=== PATIENT | female | born 1990 | race Caucasian/White ===

== ENCOUNTER 2022-04-12 08:58 | Outpatient (CLI) | payer OTHER, SELFPAY ==
--- NOTE | 2022-04-12 09:15 | CRLHL7_ITS ---
For Patients: As a result of the Cures Act, medical imaging exams and procedure reports are released immediately into your electronic medical record. You may view this report before your referring provider. If you have questions, please contact your health care provider. INDICATION: First trimester scan, establish dates. COMPARISON: None. TECHNIQUE: Real-time preciado-scale imaging of the pelvis was performed. FINDINGS: Sonographic imaging demonstrates a single living intrauterine gestation. The embryo demonstrates a regular cardiac rate measuring 171 beats per minute. The embryo`s crown-rump length measurement of 1.6 cm corresponds to a gestational age of 8 weeks 0 days with a sonographic due date of 11/22/2022. There is a normal-appearing yolk sac. There are no gross abnormalities noted within the embryo at this early state of development. The gestational sac has a normal appearance. There is no evidence of a perigestational hemorrhage. The amount of fluid within the sac appears appropriate for gestational age. The cervix is closed. The myometrium appears normal. The ovaries are of normal size. Corpus luteal cyst left ovary. There are no suspicious fluid collections noted in the cul-de-sac. IMPRESSION: Normal first trimester OB ultrasound exam. Gestational age calculated at 8 weeks 0 days with a sonographic due date of 11/22/2022. Dictated by Isidro Santos MD @ 04/12/2022 9:59:05 AM (Electronically Signed)
== END 2022-04-12 08:59 | disposition home or self-care (01) ==
LOC: US 08:59
PROVIDERS: Visit Provider Obstetrics & Gynecology
DX: Z34.91 Encounter for supervision of normal pregnancy, unspecified, first trimester (principal); Z3A.08 8 weeks gestation of pregnancy
CPT/HCPCS: 76817

== ENCOUNTER 2022-04-12 10:22 | Outpatient (CLI) | payer OTHER, SELFPAY ==
[2022-04-12 13:14] LABS: Hepatitis B Surface Antigen* Negative (Negative)
[2022-04-12 13:31] LABS: Hepatitis C Virus Antibody* Negative (Negative)
[2022-04-12 15:13] LABS: HIV 1/2/P24 Combo Screen* Negative (Negative)
[2022-04-12 15:19] LABS: Chlamydia DNA Amplified* NOT DETECTED (No Detected); GC DNA Amplified* NOT DETECTED (No Detected)
[2022-04-13 12:25] LABS: Rapid Plasma Reagin (RPR) Non Reactive (Non Reactive)
== END 2022-04-12 10:23 | disposition home or self-care (01) ==
PROVIDERS: Visit Provider Obstetrics & Gynecology
DX: Z34.91 Encounter for supervision of normal pregnancy, unspecified, first trimester (principal)
CPT/HCPCS: 86592; 86703; 86762; 86803; 86850; 86900; 86901; 87086; 87340; 87491; 87591

== ENCOUNTER 2022-08-02 14:01 | Outpatient (CLI) | payer OTHER, SELFPAY ==
--- NOTE | 2022-08-02 14:00 | CRLHL7_ITS ---
For Patients: As a result of the Century Cures Act, medical imaging exams and procedure reports are released immediately into your electronic medical record. You may view this report before your referring provider. If you have questions, please contact your health care provider. INDICATION: Growth check COMPARISON: 04/12/2022 TECHNIQUE: Real time preciado scale imaging of the fetus was performed. FINDINGS: Sonographic imaging demonstrates a single living intrauterine gestation. Fetus demonstrates a regular cardiac rate of 129 beats per minute. Fetus has a vertex position. The placenta lies fundal posterior. Amniotic fluid volume appears normal and there is a single deepest vertical pocket: 6.5 cm. The estimated weight is 761gm which lies at the 68th %. BPD 65th percentile. HC 44th percentile. AC 67th percentile. FL 49th percentile. The HC/AC ratio measures 1.10 range (1.04-1.22). IMPRESSION: Sonographic gestational age 25 weeks 0 days and sonographic due date 11/15/2022. Sonographic age 4 days ahead of the clinical age. Estimated weight 68th percentile. Abdominal circumference 67th percentile. Dictated by Isidro Santos MD @ 08/04/2022 11:15:26 AM (Electronically Signed)
== END 2022-08-02 14:02 | disposition home or self-care (01) ==
LOC: US 14:02
PROVIDERS: Visit Provider Obstetrics & Gynecology
DX: Z34.92 Encounter for supervision of normal pregnancy, unspecified, second trimester (principal); Z3A.25 25 weeks gestation of pregnancy
CPT/HCPCS: 76816

== ENCOUNTER 2022-08-30 09:17 | Outpatient (CLI) | payer OTHER, SELFPAY ==
[2022-09-01 12:22] LABS: Rapid Plasma Reagin (RPR) Non Reactive (Non Reactive)
== END 2022-08-30 09:18 | disposition home or self-care (01) ==
PROVIDERS: Visit Provider Obstetrics & Gynecology
DX: Z34.93 Encounter for supervision of normal pregnancy, unspecified, third trimester (principal); Z3A.28 28 weeks gestation of pregnancy
CPT/HCPCS: 86592

== ENCOUNTER 2022-08-30 09:33 | Outpatient (CLI) | payer OTHER, SELFPAY ==
--- NOTE | 2022-08-30 09:45 | CRLHL7_ITS ---
For Patients: As a result of the Century Cures Act, medical imaging exams and procedure reports are released immediately into your electronic medical record. You may view this report before your referring provider. If you have questions, please contact your health care provider. INDICATION: Follow up growth COMPARISON: Ob ultrasound 08/02/2022. Technique: Ob ultrasound. Findings: Single viable intrauterine gestation of 29 weeks duration with expected date of delivery 11/15/2022. Estimated weight is 1362 g (69th percentile.); was 761 g on the study dated 08/02/2022. heart rate is 161 beats per minute and regular. The deepest pocket of amniotic fluid is measuring 5.3 cm. Placenta is fundal in location. Biparietal diameter is 4.2 cm, head circumference sees 26.3 cm, abdominal circumference is 25.4 cm and the femur length is 5.5 cm. Impression: Single viable intrauterine gestation of 29 weeks duration with estimated date of delivery 11/15/2022. 1. Estimated weight is 1362 g at 69th percentile. Dictated by Anibal Cuenca MD @ 08/30/2022 2:17:55 PM (Electronically Signed)
== END 2022-08-30 09:34 | disposition home or self-care (01) ==
LOC: US 09:35
PROVIDERS: Visit Provider Obstetrics & Gynecology
DX: Z34.93 Encounter for supervision of normal pregnancy, unspecified, third trimester (principal); Z3A.29 29 weeks gestation of pregnancy
CPT/HCPCS: 76816

== ENCOUNTER 2022-09-27 09:43 | Outpatient (CLI) | payer OTHER, SELFPAY ==
--- NOTE | 2022-09-27 09:45 | CRLHL7_ITS ---
For Patients: As a result of the Century Cures Act, medical imaging exams and procedure reports are released immediately into your electronic medical record. You may view this report before your referring provider. If you have questions, please contact your health care provider. INDICATION: Third trimester scan, evaluate growth. COMPARISON: 08/30/2022 TECHNIQUE: Real time preciado scale imaging of the fetus was performed. FINDINGS: Sonographic imaging demonstrates a single living intrauterine gestation. Fetus demonstrates a regular cardiac rate of 126 beats per minute. Fetus has a vertex position. The placenta lies fundal. Amniotic fluid volume appears normal and there is a single deepest vertical pocket: 3.7 cm. The estimated weight is 2295gm which lies at the 84th %. On the prior OB ultrasound exam dated 08/30/2022 the estimated weight was at the 69th%. BPD 64th percentile. HC 49th percentile. AC 94th percentile. FL 53rd percentile. The HC/AC ratio measures 1.00 range (0.95-1.11). IMPRESSION: Sonographic gestational age 33 weeks 4 days and sonographic due date of 11/11/2022. Sonographic age is 8 days ahead of the clinical age. Estimated weight 84th percentile. Abdominal circumference 94th percentile. Dictated by Isidro Santos MD @ 09/27/2022 2:01:10 PM (Electronically Signed)
== END 2022-09-27 09:44 | disposition home or self-care (01) ==
LOC: US 09:44
PROVIDERS: Visit Provider Obstetrics & Gynecology
DX: Z34.93 Encounter for supervision of normal pregnancy, unspecified, third trimester (principal); Z3A.33 33 weeks gestation of pregnancy
CPT/HCPCS: 76816

== ENCOUNTER 2022-10-25 09:45 | Outpatient (CLI) | payer OTHER, SELFPAY ==
--- NOTE | 2022-10-25 09:45 | CRLHL7_ITS ---
For Patients: As a result of the Century Cures Act, medical imaging exams and procedure reports are released immediately into your electronic medical record. You may view this report before your referring provider. If you have questions, please contact your health care provider. INDICATION: Follow up growth. TECHNIQUE: Transabdominal obstetrical ultrasound. COMPARISON: September 27, 2022. FINDINGS: Single living intrauterine in vertex presentation. heart rate 132 beats per minute. Normal amniotic fluid. Single deepest pocket measurement 5.7 cm. Fundal placenta. Biparietal diameter 8.8 cm, 35 weeks 3 days, 32nd percentile. Head circumference 32.7 cm, 37 weeks 0 days, 35th percentile. Abdominal circumference 33.7 cm, 37 weeks 4 days, 88th percentile. Femur length 6.9 cm, 35 weeks 4 days, 26th percentile. Composite calculated ultrasound age 36 weeks 3 days with a sonographic due date of November 19, 2022. Estimated weight 3030 g which lies at the 63rd percentile. The head to abdominal circumference ratio is normal at 1.0 (0.95-1.11). The femur length to abdominal circumference ratio is 20.9 (20.0-24.0). Estimated weight 2295 g which lies at the 83rd percentile. IMPRESSION: 1. Single living intrauterine in vertex presentation. Fundal placenta. 2. Composite calculated ultrasound age 36 weeks 3 days with an estimated due date of November 19, 2022. This is delayed by 7 days when compared to the prior study September 27, 2022. 3. Estimated weight lies at the 63rd percentile. Dictated by Prince Nails MD @ 10/25/2022 11:57:03 AM (Electronically Signed)
== END 2022-10-25 09:46 | disposition home or self-care (01) ==
PROVIDERS: Visit Provider Obstetrics & Gynecology
DX: Z34.93 Encounter for supervision of normal pregnancy, unspecified, third trimester (principal); Z3A.36 36 weeks gestation of pregnancy
CPT/HCPCS: 76816

== ENCOUNTER 2022-10-25 10:48 | Outpatient (CLI) | payer OTHER, SELFPAY | END 2022-10-25 10:49 | disposition home or self-care (01) | PROVIDERS: Visit Provider Obstetrics & Gynecology | DX: Z34.93 Encounter for supervision of normal pregnancy, unspecified, third trimester (principal); Z3A.36 36 weeks gestation of pregnancy | CPT/HCPCS: 87081; 87653 ==

== ENCOUNTER 2022-10-31 13:05 | Outpatient (CLI) | payer OTHER, SELFPAY ==
[2022-10-31 13:03] VITALS: BP 116/74; PULSE 75; RESP 18; TEMP 36.6; O2SAT 98
[2022-10-31 14:12] LABS: Appearance Urine Slightly Cloudy (Clear); Bilirubin Urine Negative (Negative); Blood Urine Negative (Negative); Color Urine Yellow (Yellow); Glucose Urine Negative (Negative); Ketones Urine Negative (Negative); Leukocyte Esterase Urine Negative (Negative); Nitrite Urine Negative (Negative); Protein Urine Negative (Negative); Urobilinogen Urine 0.2 (0.2-1.0)
[2022-10-31 14:14] LABS: Amnisure Rom* Negative
[2022-10-31 14:20] LABS: RBC Urine 0-2 (0-2)
[2022-10-31 14:21] LABS: Bacteria Urine Few; Squamous Epithelial Cell Urine Few (None-Few)
--- NOTE | 2022-10-31 14:45 | PC.OBNST ---
NST Note NST Note Start: 10/31/22 13:13 Freq: ONCE Status: Active Protocol: Document 10/31/22 14:43 AB (Rec: 10/31/22 14:45 AB [id number]) NST Note 1 EDC 11/19/22 Gestational Age In Weeks & Days 37 Weeks & 2 Days Patient Presented with Complaint(s) of Leaking fluid,Pain If Pain, describe location Patient reports lower back pain Reactive Yes Appropriate for Gestational Age Yes JULIETH Juan Date 10/31/22 Reactive Yes Appropriate for Gestational Age Yes JULIETH Gaffney, RNC Date 10/31/22 OB NST charge Yes Complete NST Note via Write Note Yes The provider's electronic signature indicates the NST is reactive/appropriate for gestational age. *Note to provider: If an addendum is required, open the patient's chart and click on the note under the Nurse/Allied Health tab.
[2022-11-01 08:46] LABS: Clue Cells No Clue Cells Seen (None Seen); Trichomonas No Trichomonas Seen (None Seen); Yeast No Yeast Seen (None Seen)
== END 2022-10-31 14:35 | disposition home or self-care (01) ==
LOC: OB OUT 13:06 → OB 13:07
PROVIDERS: Visit Provider Obstetrics & Gynecology
DX: O47.1 False labor at or after 37 completed weeks of gestation (principal); Z3A.37 37 weeks gestation of pregnancy
CPT/HCPCS: 59025; 81003; 81015; 84112; 87086; 87210; 99213

== ENCOUNTER 2022-11-05 16:07 | Outpatient (CLI) | payer OTHER, SELFPAY ==
[2022-11-05 16:16] VITALS: BP 115/73; PULSE 73
[2022-11-05 16:56] LABS: Amnisure Rom* Negative
--- NOTE | 2022-11-05 17:05 | US_ITS ---
Patient: CHANTEL DEL RIO Facility:?[facility] Patient ID:?[id number] Site Patient ID:?[id number]. Site :?[id number] Study:?US-OB Pelvis -11/05/2022 6:43:34 PM Ordering Physician:Colleen Washburn Final Report: INDICATION: Check PALMER. COMPARISON: OB ultrasound 10/25/2022. TECHNIQUE: Ultrasound OB pelvis with real time preciado scale imaging and color Doppler analysis. FINDINGS: Sonographic imaging demonstrates a single living intrauterine gestation. The fetus has a regular cardiac rate of 139 beats per minute. The fetus has a cephalic orientation. The placenta lies fundal without evidence of placenta previa. Amniotic fluid volume appears normal. Single deepest pocket measures 4.5 cm and the amniotic fluid index measures 11.1 cm. IMPRESSION: 1. Single living intrauterine gestation in cephalic position with heart rate 139 beats per minute. 2. PALMER within normal limits. Dictated by Allyn Avalos MD @ 11/05/2022 7:00:14 PM Signed by:?Allyn Avalos MD @11/05/2022 7:00:14 PM (Electronic Signature)
--- NOTE | 2022-11-05 19:17 | PC.OBNST ---
NST Note NST Note Start: 11/05/22 16:17 Freq: ONCE Status: Active Protocol: Document 11/05/22 19:16 ABP (Rec: 11/05/22 19:17 ABP [id number]) NST Note 1 Para (# of births) 0 EDC 11/19/22 Gestational Age In Weeks & Days 38 Weeks & 0 Days Patient Presented with Complaint(s) of Leaking fluid Reactive Yes JULIETH Jefferson RN Date 11/05/22 Reactive Yes JULIETH Garcia RN Date 11/05/22 OB NST charge Yes Complete NST Note via Write Note Yes The provider's electronic signature indicates the NST is reactive/appropriate for gestational age. *Note to provider: If an addendum is required, open the patient's chart and click on the note under the Nurse/Allied Health tab.
== END 2022-11-05 18:50 | disposition home or self-care (01) ==
LOC: OB OUT 16:09 → OB 16:10
PROVIDERS: Visit Provider Obstetrics & Gynecology
DX: O47.1 False labor at or after 37 completed weeks of gestation (principal); Z3A.38 38 weeks gestation of pregnancy
CPT/HCPCS: 59025; 76815; 84112; 99213

== ENCOUNTER 2022-11-18 03:31 | Inpatient (IN) | payer OTHER, SELFPAY ==
[2022-11-18] VITALS (90 sets, daily range): BP systolic 88–121; BP diastolic 49–77; PULSE 53–100; RESP 16–18; TEMP 36.4–36.9; O2SAT 90–100; BMI 31.1
[2022-11-18 03:27] LABS: Amnisure Rom* POSITIVE
[2022-11-18 04:56] LABS: SARS PCR* Negative SARS-CoV-2 (Negative)
[2022-11-18 08:41] LABS: Basophils Absolute Auto 0.02 K/uL (0.00-0.30); Basophils Percent Auto 0.2 % (0.0-3.0); Eosinophils Absolute Auto 0.05 K/uL (0.00-0.50); Eosinophils Percent Auto 0.5 % (0.0-7.0); Hematocrit 40.6 % (33.0-51.0); Hemoglobin* 13.6 gm/dL (12.0-16.0); Immature Granulocytes Abs Auto 0.04 K/uL (0.00-0.30); Immature Granulocytes Pct Auto 0.4 %; Lymphocytes Percent Auto 18.9 % (20-44); Mean Corpuscular HGB Conc 34 gm/dL (32-36); Mean Corpuscular Hemoglobin 31 pg (26-34); Mean Corpuscular Volume 93 fL (80-100); Monocytes Percent Auto 6.2 % (0.0-11.0); Neutrophils Percent Auto 73.8 % (42.0-72.0); Platelet Count* 250 K/uL (140-440); RDW Coefficient of Variation % 14.2 % (11.5-15.5); Red Blood Count 4.36 m/uL (4.00-5.20); White Blood Count* 10.05 K/uL (4.50-11.00)
[2022-11-18] MEDS: OXYTOCIN 30 unit/500 ML in NS 30 UNIT/500 ML BAG IVPB (08:52)
[2022-11-18 08:54] LABS: Slide Review Reflex No
--- NOTE | 2022-11-18 09:13 | P.LDBA_ITS ---
Subjective History of Present Illness Time Seen by Provider: 07:30 Date Seen: 11/18/22 Narrative: Patient is being admitted to Labor and Delivery for rupture of membranes at 0145. She is a 32 year old at 39 weeks 6d gestation. Her full history and physical was dictated by Dr. Nicolas on 11/02/2022. Please see this for details. Patient reports minimal contractions. Denies any vaginal bleeding. Active movements. Patient denies fever, chills, chest pain, SOB, n/v, headache, vision changes, RUQ pain, or dizziness. OB - Problem Based A/P Additional Plan (1) Immunocompromised state due to drug therapy: Status: Chronic (2) : Status: Acute (3) Ankylosing spondylitis: Problem details: seeing Rheumatology. Taking Enbrel inj. weekly. City Magistrate is Dr. Schmitt through [facility]. Status: Acute (4) Family history of hypertrophic cardiomyopathy: Status: Acute Plan - 4 hours have passed since her last check without change. Patient is also having irregular, soft contractions. - Given that she is PROM, I counseled patient on augmenting her labor with Pitocin given her small dilation without regular contractions. We want to decrease the risk of intrauterine infection. - Patient desires augmentation with pitocin after counseling - Pain management: Desires nitrous, unsure about epidural Delivery/Labor/Induction Plan Induction method: per pitocin protocol OB Exam Physical Exam Vital signs: Temp Pulse Resp BP Pulse Ox 98.5 F 60 16 117/77 98 11/18/22 07:22 11/18/22 07:16 11/18/22 03:32 11/18/22 07:16 11/18/22 07:20 Narrative: Physical exam: General: No acute distress Psych: Alert and oriented x3, full affect HEENT: Normocephalic, atraumatic Lungs: Unlabored breathing Abdominal: Gravid. Soft, non tenderness to palpation Neuro: No focal deficit. Mentating appropriately Pelvic exam: SVE: 1.5/50/-2 @ 0800.
[2022-11-18] MEDS: LACTATED RINGERS 1000 ML 1,000 ML 125 ML IV ×2 (11:00→22:43)
[2022-11-18] MEDS: ROPIVACAINE 0.2% 100 ml 100 ML 12 MG EPIDURAL ×2 (13:25→21:24)
--- NOTE | 2022-11-18 13:37 | PM.ANBPRC ---
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 She is and accompanied by her . She does not smoke. She has not used alcohol during . She does not use recreational drugs. She has no dietary restrictions. Smoking Status: Never smoker Little interest or pleasure in doing things: not at all Feeling down, depressed, or hopeless: not at all Meds Home Medications and Allergies Home Medications Medication Instructions Recorded Confirmed Type docosahexaenoic acid 200 mg mg PO 02/22/22 11/14/22 History capsule ( DHA) etanercept 50 mg/mL (1 mL) 50 mg subcut QWEEK 02/22/22 11/18/22 History subcutaneous pen injector (Enbrel SureClick) omega 0-ucf-cra-fish oil 1,200 mg 1 cap PO DAILY 02/22/22 11/18/22 History (144 mg-216 mg) capsule (Fish Oil) aspirin 81 mg chewable tablet 81 mg PO QDAY 07/06/22 11/18/22 History cholecalciferol (vitamin D3) 50 50 mcg PO DAILY 10/31/22 11/18/22 History mcg (2,000 unit) tablet (D3 DOTS) docusate sodium 100 mg capsule 100 mg PO DAILY 10/31/22 11/18/22 History (Colace) Allergies Allergy/AdvReac Type Severity Reaction Status Date / Time hydroxychloroquine Allergy Severe rash Verified 11/18/22 03:17 [From Plaquenil] Results Labs Labs: Laboratory Results - last 24 hr 11/18/22 11/18/22 11/18/22 03:15 03:44 08:35 WBC 10.05 RBC 4.36 Hgb 13.6 Hct 40.6 MCV 93 MCH 31 MCHC 34 RDW Coeff of Arnold 14.2 Plt Count 250 Neut % (Auto) 73.8 H Lymph % (Auto) 18.9 L [place] % (Auto) 6.2 Eos % (Auto) 0.5 Baso % (Auto) 0.2 Neut # (Auto) 7.40 H Lymph # (Auto) 1.90 [place] # (Auto) 0.60 Eos # (Auto) 0.05 Baso # (Auto) 0.02 Membrane Rupture POSITIVE SARS-CoV-2 (PCR) Negative SARS-CoV-2 Blood Type A Positive Antibody Screen NEGATIVE Vital Signs Vital Signs: Last Vital Signs Temp 97.9 F 11/18/22 12:00 Pulse 81 11/18/22 13:35 Resp 16 11/18/22 03:32 BP 108/67 11/18/22 13:35 Pulse Ox 100 11/18/22 13:36 Weight: 77.337 kg Height: 157.48 cm Anesthesia Procedures Epidural Insertion Patient Location: OB Start Time: 12:45 Stop Time: 13:45 Start Date: 11/18/22 Stop Date: 11/18/22 Reason for Block: procedure for pain Patient Position: sitting Performed By: Polo Allen Preanesthetic Checklist: IV checked, risks and benefits discussed, surgical consent, monitors and equipment checked, pre-op evaluation, timeout performed and anesthesia consent Prep: chlorhexidine gluconate Monitoring: blood pressure monitoring, continuous pulse oximetry and heart rate Approach: midline Vertebral Space: lumbar (1-5) Epidural Technique: CAROL saline Needle Type: Tuohy needle Injection Technique: continuous catheter Needle gauge: 17 Needle Length (cm): 10 cm Needle Insertion Depth (cm): 6 Catheter Gauge: 19 Catheter Type: multi-orifice Catheter at skin depth (cm): 12 Test Dose Result: negative and lidocaine 1.5% with epinephrine 1 to 200,000
[2022-11-18] MEDS: LACTATED RINGERS 1000 ML 1,000 ML 1125 ML IV (14:49)
[2022-11-18] MEDS: ACETAMINOPHEN 500 MG TABLET 1000 MG PO (15:37)
--- NOTE | 2022-11-18 19:50 | PM.OBPNL ---
Subjective Time Seen by Provider: 19:50 Date Seen: 11/18/22 Objective Vital Signs: Last Vital Signs Temp 98.2 F 11/18/22 19:24 Pulse 61 11/18/22 19:38 Resp 16 11/18/22 19:24 BP 106/59 L 11/18/22 19:38 Pulse Ox 100 11/18/22 16:39 Pelvic Exam Dilation (cm): 4 Effacement (%): 90 Station: -1 Contractions Monitor mode: External Contraction Frequency: Q2-3 minutes Contraction pattern: Regular Contraction intensity: Moderate Assessment Assessment: early labor Station: -1 Amniotic Membrane Status: SROM (PROM ) Status: Category l Heart Rate Baseline: 120 Fdc Variability: Moderate (6-25) Monitor Accelerations: Present Monitor Decelerations: None Labor Progress: Patient PROM at 1 cm and declined pitocin until 8am. Currently, still in latent phase of labor. Cat I strip without evidence of intrauterine infection. Maternal Status: Patient is comfortable with epidural Plan Plan: Continue with augmentation of labor
[2022-11-18] MEDS: PHENYLEPHRINE 100 MCG/ML SYRINGE IVP ×2 (21:26→22:12)
[2022-11-18] MEDS: SODIUM CHLORIDE 0.9 % (FLUSH) 10 ML SYRINGE IVF (22:12)
[2022-11-18] MEDS: ePHEDrine sulfate 5 MG/ML inj 10 MG IVP (22:32)
[2022-11-19] VITALS (32 sets, daily range): BP systolic 98–146; BP diastolic 50–75; PULSE 54–108; RESP 16–18; TEMP 36.4–37; O2SAT 97–99
--- NOTE | 2022-11-19 03:26 | W.PM.VAGD1_ITS ---
Procedure Delivery date: 11/19/22 Procedure Done: Global Procedure Details: Jo-Ann is a 32 year-old now admitted on 11/18/2022 at 39w6d gestation for PROM. PROM occurred at 0145 on 11/18/2022 with clear fluid. Labor Analgesia: Epidural Pitocin: Yes Labor onset: 11/19 at 0001. Complete: 11/19 at 0125. Pushin/25 at 0143. heart tones during second stage were: cat I with early decel only. At 0254 a viable female delivered in vertex OA presentation via sp ontaneous vaginal delivery. The was placed on maternal abdomen. Cord was clamped and cut after a 30 second delay. Nose and mouth were bulb suctioned. weight pending. 8 at 1 minute and 9 at 5 minutes. Shoulder dystocia: No. Nuchal cord: No Placenta delivered spontaneous at 0258 with a 3 vessel cord. Laceration(s): 2nd. Repaired using 2-0 vicryl suture in a/the continous locking manner. Blood loss: 100 mL. Blood loss measurement type: Estimated Sponge and needles counts are correct. Specimen: None Mother and infant were stable after delivery. Infant's name: Undecided The patient is planning on breast feeding. Events: Premature Rupture of Membrane Intrapartal Events: None Delivery augmentation: pitocin Delivery monitor: external FHT Route of delivery: Episiotomy description: None Laceration description: Perineal - 2nd Degree Delivery repair: Vicryl Estimated blood loss (mL): 100 Anesthesia type: Epidural Disposition: floor [place] Infant Gender: Female presentation: vertex Placental Delivery Description: Spontaneous Cord Description: 3 Vessels
[2022-11-19] MEDS: IBUPROFEN 600 MG TABLET PO ×3 (05:21→20:20)
[2022-11-19] MEDS: ACETAMINOPHEN 500 MG TABLET 1000 MG PO ×3 (10:22→23:42)
[2022-11-19] MEDS: DOCUSATE SODIUM 100 MG CAPSULE PO (10:23)
[2022-11-20] MEDS: IBUPROFEN 600 MG TABLET PO ×4 (03:23→21:45)
[2022-11-20 06:45] LABS: Hemoglobin* 10.6 gm/dL (12.0-16.0)
[2022-11-20 08:30] VITALS: BP 112/60; PULSE 67; RESP 16; TEMP 36.9; O2SAT 98
[2022-11-20] MEDS: DOCUSATE SODIUM 100 MG CAPSULE PO (08:43)
--- NOTE | 2022-11-20 09:08 | PM.OBPNVD1 ---
OB - PN:Subj Subjective Date Seen: 11/20/22 Patient comments OB post-: no complaints, pain well controlled, perineal pain, tolerating diet and flatus present [place] infant status: and doing well feeding status: exclusively Narrative: Jo-Ann is a 32 y.o. who was admitted to [facility] for PROM. ?She had an uncomplicated .?The patient feels well. ?The pain is well controlled with current medications. ?She has no new complaints. ?She is breast feeding and reports things are going well.? the patient has done well.? Vitals have been stable.? She has remained afebrile.? Has a good appetite, is tolerating a general diet. ?She is voiding without difficulty.? She is passing gas and has not had a bowel movement.? She is ambulating and denies any dizziness.? Has Small amount of rubra lochia. OB - PN: Obj Exam Physical Exam: Vital signs: Temp Pulse Resp BP Pulse Ox O2 Del Method 98.1 F 76 16 103/67 97 Room Air 11/19/22 23:30 11/19/22 23:30 11/19/22 23:30 11/19/22 23:30 11/19/22 23:30 11/19/22 23:30 Narrative: GENERAL APPEARANCE:? normal affect, alert, no distress MOOD:? appropriate CHEST:? clear to auscultation HEART:? regular rate and rhythm ABDOMEN:? soft, non-tender the uterine fundus is 1 below Umbilicus, midline and is appropriate for the stage of recovery. PERINEUM:? mild edema of the perineum, there is a Perineal Laceration, 2nd degree, that is healing well. EXTREMITIES:? normal and no edema OB - PN: Obj Data Labs Labs: Laboratory Results - last 24 hr 11/20/22 06:16 Hgb 10.6 L OB - PN: A/P Vaginal Delivery Assessment and Plan (1) care and examination immediately after delivery: Status: Acute (2) Lactating mother: Status: Acute (3) Immunocompromised state due to drug therapy: Status: Chronic (4) Ankylosing spondylitis: Problem details: seeing Rheumatology. Taking Enbrel inj. weekly. [employer] V[employer] Worker is Dr. Schmitt through [facility]. Status: Acute (5) Family history of hypertrophic cardiomyopathy: Status: Acute Plan day: 1 Plan: routine care Comments: Lactating mother. May see if desired. Anticipate discharge tomorrow, 10/24.
[2022-11-20 16:10] VITALS: BP 110/71; PULSE 85; RESP 18; TEMP 36.5; O2SAT 96
[2022-11-21 00:41] VITALS: BP 105/68; PULSE 64; RESP 16; TEMP 36.7; O2SAT 95
[2022-11-21 07:28] VITALS: BP 109/70; PULSE 81; RESP 16; TEMP 36.4; O2SAT 97
[2022-11-21 07:33] VITALS: TEMP 36.4
[2022-11-21] MEDS: IBUPROFEN 600 MG TABLET PO (07:33)
[2022-11-21] MEDS: DOCUSATE SODIUM 100 MG CAPSULE PO (07:34)
--- NOTE | 2022-11-21 07:53 | PM.OBDSVD1 ---
DS: Providers Provider Date Seen: 11/21/22 Date of admission: 11/18/22 03:31 Primary care physician: Not a Local Provider Admitting Clinician: Gretta Dickey MD Attending Physician on discharge: SEBASTIAN Macias supervised by Amanda Ochoa CNM Date of Discharge: 11/21/22 DS: Diagnosis Discharge Diagnosis (1) care and examination immediately after delivery: Status: Acute (2) Lactating mother: Status: Acute Exam Narrative: Exam Narrative: GENERAL APPEARANCE:? normal affect, alert, no distress? MOOD:? appropriate? CHEST:? clear to auscultation? HEART:? regular rate and rhythm? ABDOMEN:? soft, non-tender the uterine fundus is firm At Umbilicus, Midline and is appropriate for the stage of recovery.? PERINEUM:? mild edema of the perineum, there is a Perineal Laceration,? 2nd degree that is healing well.? EXTREMITIES:? normal and 1+ edema? Const: Vital Signs, click to edit/add: Vital Signs - 24 hr 11/20/22 08:30 11/20/22 16:10 11/21/22 00:41 Temperature 98.4 F 97.7 F 98.1 F Pulse Rate [Pulse Oximeter] 67 85 64 Respiratory Rate 16 18 16 Blood Pressure [Ri ght Arm] 112/60 110/71 105/68 Pulse Oximetry 98 96 95 Oxygen Delivery Me thod Room Air Room Air Room Air 11/21/22 07:28 11/21/22 07:33 Temperature 97.6 F 97.6 F Pulse Rate [Pulse Oximeter] 81 Respiratory Rate 16 Blood Pressure [Ri ght Arm] 109/70 Pulse Oximetry 97 Oxygen Delivery Me thod Room Air Documenting provider has reviewed patient's vital signs: yes OB - DS: Summary Hospital Course Hospital Course: Jo-Ann is a 32 year old G 1 P 1 at 40 weeks gestation that was admitted to the Center on 11/18/22 for PROM. She had an uncomplicated vaginal delivery. She delivered a viable female infant. She is breast feeding. the patient has done well. The patient feels well.? The pain is well controlled with current medications.? She has no new complaints.? Urinary output is adequate and she is voiding without difficulty.? Has a good appetite, is tolerating a general diet, is passing flatus, and has not yet had a bowel movement.? Has small amount of rubra lochia.? She is ambulating well. She is and reports it is going well. Peripartum Data Infant delivery method: Vaginal Laceration description: Perineal - 2nd Degree complications: none Infant Gender: Female Infant Discharge Plan: Home Status at Discharge Functional status at discharge: independent ambulation Overall status at discharge: patient is progressing back to baseline Time Spent with Patient Time attestation: Total time spent providing and/or coordinating discharge services: Time spent: Less than 30 minutes Discharge Plan Discharge Disposition: Home, Self-Care Date of Admission: 11/18/22 03:31 Attending Provider on Discharge: Amanda Ochoa Primary Care Provider: Provider,Not a Local Condition: Stable Anticipated Discharge Date/Time: 11/21/22 12:00 Discharge Medications: New docusate sodium 100 mg Capsule 100 mg PO DAILY Qty: 60 1RF ibuprofen 600 mg Tablet 600 mg PO Q6H PRNQty: 60 1RF Continued Enbrel SureClick 50 mg/mL (1 mL) pen injector 50 mg subcut QWEEK omega 6-obl-znh-fish oil [Fish Oil] 1,200 (144-216) mg capsule 1 cap PO DAILY DHA 200 mg capsule PO cholecalciferol (vitamin D3) [D3 DOTS] 50 mcg (2,000 unit) tablet 50 mcg PO DAILY docusate sodium [Colace] 100 mg capsule 100 mg PO DAILY Patient Comments: Started 2 days ago, taking daily cyclobenzaprine 5 mg tablet 5 mg PO QHS PRN (Reason: muscle spasm) Qty: 20 1RF Discontinued aspirin 81 mg tablet,chewable 81 mg PO QDAY Discharge Orders: Discharge Order (Routine); Ordered 11/21/22 Ordered By: Amanda Ochoa Patient Education: OB Over the Counter Medication Information, OB Vaginal/Breast Feeding Additional Instructions: Discharge instructions were reviewed with the patient including signs and symptoms of infection and home going medications Nothing vaginally for 6 weeks: no tampons or intercourse Off Work or School for 6 weeks 2-week visit: discuss feeding concerns, review control options and screen for anxiety/depression. 6-week visit for an annual exam. consultation services are available to all mothers and babies for the first year after delivery.? To make an appointment, please call [phone]. Activity Level: Activity as Tolerated Discharge Diet: Regular Follow Up Appointments: [facility] [Provider Group] Forms: [facility] [employer] Info Instructions
== END 2022-11-21 13:15 | disposition home or self-care (01) | DRG 806 ==
LOC: OB OUT 03:31 → OB 03:31
PROVIDERS: Obstetrics & Gynecology; Admitting Provider Obstetrics & Gynecology; Visit Provider Obstetrics & Gynecology
DX: O42.02 Full-term premature rupture of membranes, onset of labor within 24 hours of rupture (principal); D84.821 Immunodeficiency due to drugs; Z37.0 Single live birth; O70.1 Second degree perineal laceration during delivery; Z3A.39 39 weeks gestation of pregnancy; M45.9 Ankylosing spondylitis of unspecified sites in spine
CPT/HCPCS: 1967; 36415; 84112; 85018; 85025; 86850; 86900; 86901; 87635; A9270; J2370; J2795; J7120; S0020

== ENCOUNTER 2022-12-05 13:18 | Outpatient (CLI) | payer OTHER, SELFPAY ==
--- NOTE | 2022-12-21 16:38 | P.LACCB_ITS ---
Consult Note - Mom Date of Visit Date of visit: 12/05/22 organizational effectiveness consultant: Judy Luque Visit Code: Visit Patient's Information Phone number: [phone] : 1 Para: 1 Allergies hydroxychloroquine [From Plaquenil] Allergy (Severe, Verified 12/02/22 10:57) rash Mother's Medical History: Medical History (Updated 11/22/22 @ 00:00 by Background Daemon) Ankylosing spondylitis ?M45.9 - Ankylosing spondylitis of unspecified sites in spine (ICD-10) Immunocompromised state due to drug therapy ?D84.821 - Immunodeficiency due to drugs (ICD-10) ?Z79.899 - Other extermination supervisor (current) drug therapy (ICD-10) Work 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 Delivery Information Delivery type: Vaginal Weeks Gestation: 40.0 Gestational Age: AGA Weight: 3.345 kg Discharge Weight: 3.124 kg Baby's Information Baby's Age at Visit: 16 days Baby's Provider or Clinic: Moriah Harrison NP Jaundice: No Reason for Consult Reason for Consult: concern for fast flow Past Experience Past Experience: No Current Frequency of Day Feedings: every 2 - 3 hours Frequency of Night Feedings: every 3 - 4 hours Both Breasts: No Suck: fairly strong Latch: wide Length of Time: 15 - 20 minutes on one side Pumping Pumping: No Supplementing EMB Supplement: No Formula Supplement: No Baby Elimination Number of Wet Diapers a Day: 10 - 12 Number of BM a Day: 5 - 6; yellow and seedy, often watery Breast/Nipple Condition Breast Information: WNL Engorgement: No Maternal Nipple Condition - Left: Common Nipple Maternal Nipple Condition - Right: Common Nipple Sore Nipples: No Onsite Pre-Feed weight: 3.702 kg Post-Feed weight: 3.816 kg Milk Transferred (mL): 114 Pre-Nursing Left Nipple: Within Normal Limits Pre-Nursing Right Nipple: Within Normal Limits Post-Nursing Left Nipple: Within Normal Limits Post-Nursing Right Nipple: Within Normal Limits Assessments/Interventions Assessments/Interventions: Met with mom and this now 16 day old ex- term AGA baby for consult.? Spoke to mom on 12/02 and she stated she was concerned b/c baby was now only nursing about 5 minutes/side when feedings had been 20 - 30 minutes.? She also reported baby was coughing, spitting up, arching her back and coming off the breast with milk dripping out of her mouth.? She had met with a PH RN on 11/30 who suggested her milk may be coming too forcefully and to try reclined nursing, but per mom this made baby's spit up worse.? During our phone call it was suggested mom try expressing a little milk before nursing and a appointment was made for today.? However on the both mom and baby had their 2 week appointments and Raleigh Muir, JULIETH, IBCLC assisted with a feeding and felt the flow wasn't as much of an issue as the latch.? Mom reports she used the tips given by RN over the weekend and felt feedings went better but when baby was at the breast she was still coughing occasionally, had rapid breathing, and was still spitting up now and then.? She sometimes has longer feeds but sometimes still only wants to nurse for a short amount of time on one side and is then hungry within the hour.? Mom is not pumping and hasn't introduced a bottle. Breasts WNL- symmetrical with rounded lower quadrants, intramammary distance is < 1.5 inches.? Nipples are everted and don't flatten or retract on compression; no damage noted.? Baby has gained 29 grams/day since her visit on 12/02 and is 357 grams (12 oz) above BW at 2 weeks old.? Mom denied baby had a caput/cephalohematoma at delivery.? Per mom she has equal ROM when turning her head/moving her extremities.? Palate is a little high.? Upper frenulum isn't thick or tight and her upper lip is easy to flange; she does have a suck blister to the upper lip.? She has a fairly strong suck on a finger but her tongue doesn't consistently extend past the gum line; there is good lateral movement however.? Lower frenulum wasn't visualized, posterior? Mom latched baby to the left side in the cross cradle hold- baby had great alignment and the latch looked wide.? Upper lip was a little tucked in and mom reported increased comfort when it was flanged.? Baby nursed for about 15 minutes, needing stimulation but came off on her own and transferred 62 ml.? Suggested mom offer the right side and again she had no difficulty latching her, this time upper lip was neutral.? After about 7 minutes baby came off on her own and had transferred another 52 ml for a total of 114 ml (3.8 oz)! At this feeding baby didn't cough or spit up, breathing was also regular.? Reviewed with mom that with a fast flow babies will sometimes come off the breast seeming to need to catch their breath, and will sometimes cough or sputter.? If mom feels this is happening regularly, she could try expressing a little off first but at this feeding baby did very well.? Also reviewed newborns breathe 40 - 60 times/minute and it can be irregular.? This is normal and we reviewed s/s of difficulty breathing.? Also reviewed s/s of reflux (which baby did not exhibit) as well as normal spit up.? Plan: 1. Continue nursing ALD following the tips given by RN on 12/02 and here today. Suggested mom offer both sides at every feeding. 2. Pump only to comfort if needed after a nursing session.? Start pumping once/day when baby is a month and dad can teach her how to use the bottle.? 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 3. Wait until baby is about 4 weeks to introduce a bottle.? Paced feeding was reviewed. 4. Reviewed some tongue exercises mom could try to get baby to extend her tongue past the gumline more regularly.? Will evaluate the suck blister and lower frenulum at the next visit. 5. Will f/u on 12/19 for a one month weight check in .? Meds Home Medications and Allergies Home Medications Medication Instructions Recorded Confirmed Type docosahexaenoic acid 200 mg mg PO 02/22/22 11/14/22 History capsule ( DHA) etanercept 50 mg/mL (1 mL) 50 mg subcut QWEEK 02/22/22 11/18/22 History subcutaneous pen injector (Enbrel SureClick) omega 6-kqo-wyt-fish oil 1,200 mg 1 cap PO DAILY 02/22/22 11/18/22 History (144 mg-216 mg) capsule (Fish Oil) cholecalciferol (vitamin D3) 50 50 mcg PO DAILY 10/31/22 11/18/22 History mcg (2,000 unit) tablet (D3 DOTS) docusate sodium 100 mg capsule 100 mg PO DAILY 10/31/22 11/18/22 History (Colace) Allergies Allergy/AdvReac Type Severity Reaction Status Date / Time hydroxychloroquine Allergy Severe rash Verified 12/02/22 10:57 [From Plaquenil]
== END 2022-12-05 13:19 | disposition home or self-care (01) ==
PROVIDERS: Visit Provider Obstetrics & Gynecology
DX: Z39.1 Encounter for care and examination of lactating mother (principal)
CPT/HCPCS: 99211

== ENCOUNTER 2023-07-28 12:47 | Outpatient (CLI) | payer OTHER, SELFPAY | END 2023-07-28 12:48 | disposition home or self-care (01) | PROVIDERS: PCP Family Medicine; Visit Provider Family Medicine | DX: Z13.220 Encounter for screening for lipoid disorders (principal); Z13.228 Encounter for screening for other metabolic disorders; Z13.29 Encounter for screening for other suspected endocrine disorder | CPT/HCPCS: 80053; 80061; 84443 ==

== ENCOUNTER 2023-09-07 13:39 | Outpatient (CLI) | payer OTHER, SELFPAY | END 2023-09-07 13:40 | disposition home or self-care (01) | LOC: NFLDREF 09-13 11:28 | PROVIDERS: PCP Family Medicine; Referring Provider Family Medicine; Visit Provider Obstetrics & Gynecology | DX: Z34.91 Encounter for supervision of normal pregnancy, unspecified, first trimester (principal) | CPT/HCPCS: 86747 ==

== ENCOUNTER 2023-09-27 07:58 | Outpatient (CLI) | payer OTHER, SELFPAY ==
--- NOTE | 2023-09-27 08:15 | CRLHL7_ITS ---
For Patients: As a result of the Century Cures Act, medical imaging exams and procedure reports are released immediately into your electronic medical record. You may view this report before your referring provider. If you have questions, please contact your health care provider. INDICATION: First trimester scan, establish dates. COMPARISON: None. TECHNIQUE: Real-time preciado-scale imaging of the pelvis was performed. FINDINGS: Sonographic imaging demonstrates a single living intrauterine gestation. The embryo demonstrates a regular cardiac rate measuring 167 beats per minute. The embryo`s crown-rump length measurement of 2.2 cm corresponds to a gestational age of 9 weeks 0 days with a sonographic due date of 05/01/2024. There is a normal-appearing yolk sac. There are no gross abnormalities noted within the embryo at this early state of development. The gestational sac has a normal appearance. There is no evidence of a perigestational hemorrhage. The amount of fluid within the sac appears appropriate for gestational age. The cervix is closed. The myometrium appears normal. The ovaries are of normal size. Corpus luteal cyst left ovary. There are no suspicious fluid collections noted in the cul-de-sac. IMPRESSION: Normal first trimester OB ultrasound exam. Gestational age calculated at 9 weeks 0 days with a sonographic due date of 05/01/2024. Dictated by Isidro Santos MD @ 09/27/2023 10:32:13 AM (Electronically Signed)
== END 2023-09-27 07:59 | disposition home or self-care (01) ==
LOC: US 07:59
PROVIDERS: PCP Family Medicine; Visit Provider Registered Nurse
DX: Z34.91 Encounter for supervision of normal pregnancy, unspecified, first trimester (principal); Z3A.09 9 weeks gestation of pregnancy
CPT/HCPCS: 76817

== ENCOUNTER 2023-09-27 08:49 | Outpatient (CLI) | payer OTHER, SELFPAY ==
[2023-09-27 18:01] LABS: Chlamydia DNA Amplified* Not Detected (No Detected)
[2023-09-27 18:02] LABS: GC DNA Amplified* Not Detected (No Detected)
== END 2023-09-27 08:50 | disposition home or self-care (01) ==
PROVIDERS: PCP Family Medicine; Visit Provider Registered Nurse
DX: Z34.91 Encounter for supervision of normal pregnancy, unspecified, first trimester (principal); Z3A.09 9 weeks gestation of pregnancy
CPT/HCPCS: 86592; 86703; 86704; 86706; 86762; 86787; 86803; 86850; 86900; 86901; 87086; 87340; 87491; 87591

== ENCOUNTER 2024-01-10 07:06 | Outpatient (CLI) | payer OTHER, SELFPAY ==
--- NOTE | 2024-01-10 07:15 | US_ITS ---
Patient: CHANTEL DE LRIO Facility:?[facility] Patient ID:?[id number] Site Patient ID:?[id number]. Site :?[id number] Study:?US-OB Pelvis FOLLOW UP-01/10/2024 7:47:07 AM Ordering Physician:OANH PHILLIPS Final Report: HISTORY: anatomic survey. COMPARISON: None available of this gestation. TECHNIQUE: Ultrasound examination of the is performed with transabdominal technique. FINDINGS: A single intrauterine gestation is seen in breech presentation with regular cardiac activity at 152 beats per minute. The placenta is posterior and fundal and is free of the cervical os. The placental grade is 1 and the amniotic fluid volume is normal. Single deepest vertical pocket: Normal at 5.2 cm. BPD: 6.1 cm 25 weeks 0 days HC: 22.6 cm 24 weeks 4 days AC: 20.2 cm 24 weeks 5 days FL: 4.2 cm 23 weeks 4 days The estimated age by ultrasound is 24 weeks 3 days, with an estimated date of delivery of 04/28/2024. This correlates well with the clinical age of 24 weeks 5 days. The ultrasound ratios are normal. Estimated weight is 690 grams which is at the 25th percentile based on the clinical dates. IMPRESSION: 1. Single intrauterine gestation in breech presentation with regular cardiac activity. 2. Estimated gestational age is 24 weeks 3 days. 3. Estimated weight is 690 grams which is at the 25th percentile based on the clinical dates. Dictated by Ladarius Maciel MD @ 01/11/2024 10:44:24 AM Signed by:?Ladarius Maciel MD @01/11/2024 10:44:24 AM (Electronic Signature)
== END 2024-01-10 07:07 | disposition home or self-care (01) ==
LOC: US 07:06
PROVIDERS: PCP Family Medicine; Visit Provider Obstetrics & Gynecology
DX: Z34.92 Encounter for supervision of normal pregnancy, unspecified, second trimester (principal); Z3A.24 24 weeks gestation of pregnancy
CPT/HCPCS: 76816

== ENCOUNTER 2024-02-07 09:01 | Outpatient (CLI) | payer OTHER, SELFPAY | END 2024-02-07 09:02 | disposition home or self-care (01) | LOC: NFLDREF 02-11 15:22 | PROVIDERS: PCP Family Medicine; Referring Provider Family Medicine; Visit Provider Obstetrics & Gynecology | DX: Z34.93 Encounter for supervision of normal pregnancy, unspecified, third trimester (principal); Z3A.28 28 weeks gestation of pregnancy | CPT/HCPCS: 86592 ==

== ENCOUNTER 2024-02-07 09:05 | Outpatient (CLI) | payer OTHER, SELFPAY ==
--- NOTE | 2024-02-07 09:15 | CRLHL7_ITS ---
For Patients: As a result of the Century Cures Act, medical imaging exams and procedure reports are released immediately into your electronic medical record. You may view this report before your referring provider. If you have questions, please contact your health care provider. INDICATION: Growth ultrasound. Gene mutation. COMPARISON: Ob ultrasound dated 10 Jan 2024. FINDINGS: Fetus: Single. Presentation: Breech. cardiac crgmipuv=849 beats per minute and regular. BPD 7.5 cm EGA 30 weeks 1 day. HC 26.8 cm EGA 29 weeks 1 day. AC 25.7 cm EGA 29 weeks 6 days. FL 5.3 cm EGA 28 weeks 0 days. HC/AC=1.04. MWL=9259 g. Composite EGA=29 weeks 2 days. Placenta: Fundal, os clear. Uterus: Unremarkable. Adnexa: Unremarkable. Real-time exam: biometry performed only. IMPRESSION: 1. Single live intrauterine measuring 29 weeks 2 days. Dictated by Tex Ji MD @ 02/08/2024 9:53:45 AM (Electronically Signed)
== END 2024-02-07 09:06 | disposition home or self-care (01) ==
LOC: US 09:05
PROVIDERS: PCP Family Medicine; Visit Provider Obstetrics & Gynecology
DX: Z34.93 Encounter for supervision of normal pregnancy, unspecified, third trimester (principal); Z15.89 Genetic susceptibility to other disease; M45.9 Ankylosing spondylitis of unspecified sites in spine; Z3A.29 29 weeks gestation of pregnancy
CPT/HCPCS: 76816

== ENCOUNTER 2024-03-06 08:37 | Outpatient (CLI) | payer OTHER, SELFPAY ==
--- NOTE | 2024-03-06 08:45 | CRLHL7_ITS ---
For Patients: As a result of the Century Cures Act, medical imaging exams and procedure reports are released immediately into your electronic medical record. You may view this report before your referring provider. If you have questions, please contact your health care provider. INDICATION: Third trimester scan, evaluate growth. COMPARISON: 02/07/2024 TECHNIQUE: Real time preciado scale imaging of the fetus was performed. FINDINGS: Sonographic imaging demonstrates a single living intrauterine gestation. Fetus demonstrates a regular cardiac rate of 152 beats per minute. Fetus has a vertex position. The placenta lies fundal. Amniotic fluid volume appears normal and there is a single deepest vertical pocket: 4.7 cm. The estimated weight is 6gm which lies at the 43rd %. On the prior OB ultrasound exam dated 02/07/2024 the estimated weight was at the 56th%. BPD 79th percentile. HC is 61st percentile. AC is 66th percentile. FL 7th percentile. The HC/AC ratio measures 1.06 range (0.96-1.11). IMPRESSION: Sonographic gestational age 33 weeks 2 days and sonographic due date 04/22/2024. Good correlation with dates. Normal interval growth. Estimated weight 43rd percentile. Abdominal circumference 66th percentile. Dictated by Isidro Santos MD @ 03/07/2024 6:21:54 AM (Electronically Signed)
== END 2024-03-06 08:38 | disposition home or self-care (01) ==
LOC: US 08:38
PROVIDERS: PCP Family Medicine; Visit Provider Obstetrics & Gynecology
DX: Z34.93 Encounter for supervision of normal pregnancy, unspecified, third trimester (principal); Z3A.33 33 weeks gestation of pregnancy
CPT/HCPCS: 76816

== ENCOUNTER 2024-03-19 17:24 | Outpatient (CLI) | payer OTHER, SELFPAY | END 2024-03-19 17:25 | disposition home or self-care (01) | LOC: NFLDREF 17:24 | PROVIDERS: PCP Family Medicine; Visit Provider Registered Nurse | DX: Z34.93 Encounter for supervision of normal pregnancy, unspecified, third trimester (principal); R61 Generalized hyperhidrosis | CPT/HCPCS: 84443 ==

== ENCOUNTER 2024-03-27 16:39 | Outpatient (CLI) | payer OTHER, SELFPAY ==
[2024-03-27 16:48] VITALS: PULSE 76; O2SAT 99
[2024-03-27 16:52] VITALS: BP 111/69; PULSE 79
[2024-03-27 16:53] LABS: Appearance Urine Clear (Clear); Bilirubin Urine Negative (Negative); Blood Urine Negative (Negative); Color Urine Yellow (Yellow); Glucose Urine Negative (Negative); Ketones Urine Negative (Negative); Leukocyte Esterase Urine Negative (Negative); Nitrite Urine Negative (Negative); Protein Urine Negative (Negative); Specific Gravity Urine 1.015 (1.000-1.030); Urobilinogen Urine 0.2 (0.2-1.0)
[2024-03-27 17:10] VITALS: RESP 16; TEMP 36.6
--- NOTE | 2024-03-27 17:54 | PC.OBNST ---
NST Note NST Note Start: 03/27/24 16:49 Freq: ONCE Status: Active Protocol: Document 03/27/24 17:53 ANTHONY (Rec: 03/27/24 17:54 ANTHONY Desktop) NST Note 2 Para (# of births) 1 EDC 04/26/24 Gestational Age In Weeks & Days 35 Weeks & 5 Days Patient Presented with Complaint(s) of Pain Other Complaints R sided flank pain and lower back pain Reactive Yes Appropriate for Gestational Age Yes RN Lori Sullivan RN Date 03/27/24 Reactive Yes Appropriate for Gestational Age Yes JULIETH Roberts RN Date 03/27/24 OB NST charge Yes Complete NST Note via Write Note Yes The provider's electronic signature indicates the NST is reactive/appropriate for gestational age. *Note to provider: If an addendum is required, open the patient's chart and click on the note under the Nurse/Allied Health tab.
== END 2024-03-27 17:45 | disposition home or self-care (01) ==
LOC: OB OUT 16:40 → OB 16:40
PROVIDERS: PCP Family Medicine; Visit Provider Obstetrics & Gynecology
DX: O26.893 Other specified pregnancy related conditions, third trimester (principal); R10.9 Unspecified abdominal pain; Z3A.35 35 weeks gestation of pregnancy
CPT/HCPCS: 59025; 81003; G0463

== ENCOUNTER 2024-04-03 08:49 | Outpatient (CLI) | payer OTHER, SELFPAY ==
--- NOTE | 2024-04-03 09:15 | CRLHL7_ITS ---
For Patients: As a result of the Century Cures Act, medical imaging exams and procedure reports are released immediately into your electronic medical record. You may view this report before your referring provider. If you have questions, please contact your health care provider. INDICATION: Third trimester scan, evaluate growth. COMPARISON: 03/06/2024 TECHNIQUE: Real time preciado scale imaging of the fetus was performed. FINDINGS: Sonographic imaging demonstrates a single living intrauterine gestation. Fetus demonstrates a regular cardiac rate of 150 beats per minute. Fetus has a vertex position. The placenta lies fundal. Amniotic fluid volume appears normal and there is a single deepest vertical pocket: 6.2 cm. The estimated weight is 2985gm which lies at the 52nd %. On the prior OB ultrasound exam dated 03/06/2024 the estimated weight was at the 43rd%. BPD is 71st percentile. HC 72nd percentile. AC 56th percentile. FL 26th percentile. The HC/AC ratio measures 1.04 range (0.92-1.05). IMPRESSION: Sonographic gestational age 37 weeks 0 days and sonographic due date 04/24/2024. Good correlation with dates. Estimated weight 52nd percentile. Abdominal circumference 56th percentile. Dictated by Isidro Satnos MD @ 04/04/2024 5:40:08 AM (Electronically Signed)
== END 2024-04-03 08:50 | disposition home or self-care (01) ==
LOC: US 08:50
PROVIDERS: PCP Family Medicine; Visit Provider Obstetrics & Gynecology
DX: Z34.93 Encounter for supervision of normal pregnancy, unspecified, third trimester (principal); Z3A.37 37 weeks gestation of pregnancy
CPT/HCPCS: 76816

== ENCOUNTER 2024-04-03 10:03 | Outpatient (CLI) | payer OTHER, SELFPAY ==
[2024-04-04 11:39] LABS: Strep B DNA Probe Negative (Negative)
[2024-04-04 14:26] LABS: Strep B Susceptibility Needed? No
== END 2024-04-03 10:04 | disposition home or self-care (01) ==
LOC: NFLDREF 10:04
PROVIDERS: PCP Family Medicine; Visit Provider Obstetrics & Gynecology
DX: Z34.93 Encounter for supervision of normal pregnancy, unspecified, third trimester (principal); Z3A.36 36 weeks gestation of pregnancy
CPT/HCPCS: 87081; 87653

== ENCOUNTER 2024-04-24 09:30 | Outpatient (RCR) | payer OTHER, SELFPAY | END 2024-07-08 09:56 | disposition home or self-care (01) | PROVIDERS: PCP Family Medicine; Visit Provider Obstetrics & Gynecology | DX: O26.899 Other specified pregnancy related conditions, unspecified trimester (principal); M54.50 Low back pain, unspecified; Z51.89 Encounter for other specified aftercare | CPT/HCPCS: 97110; 97112; 97140; 97161; 97535 ==

== ENCOUNTER 2024-04-25 12:50 | Outpatient (CLI) | payer OTHER, SELFPAY ==
[2024-04-25 12:56] VITALS: PULSE 122; O2SAT 80
[2024-04-25 12:57] VITALS: PULSE 88; O2SAT 97
[2024-04-25 12:59] VITALS: BP 124/76; PULSE 73; TEMP 36.6
[2024-04-25 13:37] LABS: Amnisure Rom* Negative
--- NOTE | 2024-04-25 14:31 | PC.OBNST ---
NST Note NST Note Start: 04/25/24 13:01 Freq: ONCE Status: Active Protocol: Document 04/25/24 14:29 SHINTO (Rec: 04/25/24 14:30 SHINTO [id number]) NST Note 2 Para (# of births) 1 EDC 04/26/24 Gestational Age In Weeks & Days 39 Weeks & 6 Days Patient Presented with Complaint(s) of Leaking fluid Reactive Yes Appropriate for Gestational Age Yes JULIETH Quispe Date 04/25/24 Reactive Yes Appropriate for Gestational Age Yes JULIETH Andres Date 04/25/24 OB NST charge Yes Complete NST Note via Write Note Yes The provider's electronic signature indicates the NST is reactive/appropriate for gestational age. *Note to provider: If an addendum is required, open the patient's chart and click on the note under the Nurse/Allied Health tab.
== END 2024-04-25 14:00 | disposition home or self-care (01) ==
LOC: OB OUT 12:50 → OB 12:51
PROVIDERS: PCP Family Medicine; Visit Provider Obstetrics & Gynecology
DX: O47.1 False labor at or after 37 completed weeks of gestation (principal); Z3A.39 39 weeks gestation of pregnancy
CPT/HCPCS: 59025; 84112; G0463

== ENCOUNTER 2024-04-26 15:43 | Inpatient (IN) | payer OTHER, SELFPAY ==
[2024-04-26] VITALS (54 sets, daily range): BP systolic 87–127; BP diastolic 53–80; PULSE 59–97; RESP 18; TEMP 36.6–36.8; O2SAT 91–100; BMI 34.7
[2024-04-26 16:40] LABS: Basophils Absolute Auto 0.02 K/uL (0.00-0.30); Basophils Percent Auto 0.2 % (0.0-3.0); Eosinophils Absolute Auto 0.07 K/uL (0.00-0.50); Eosinophils Percent Auto 0.8 % (0.0-7.0); Hematocrit 37.2 % (33.0-51.0); Hemoglobin* 12.3 gm/dL (12.0-16.0); Immature Granulocytes Abs Auto 0.06 K/uL (0.00-0.30); Immature Granulocytes Pct Auto 0.6 %; Lymphocytes Percent Auto 21.5 % (20-44); Mean Corpuscular HGB Conc 33 gm/dL (32-36); Mean Corpuscular Hemoglobin 31 pg (26-34); Mean Corpuscular Volume 93 fL (80-100); Monocytes Percent Auto 6.1 % (0.0-11.0); Neutrophils Absolute Auto 6.57 K/uL (1.7-7.0); Neutrophils Percent Auto 70.8 % (42.0-72.0); Platelet Count* 246 K/uL (140-440); RDW Coefficient of Variation % 13.6 % (11.5-15.5); White Blood Count* 9.29 K/uL (4.50-11.00)
[2024-04-26 16:44] LABS: Slide Review Reflex No
--- NOTE | 2024-04-26 17:13 | W.PM.LDBA ---
Subjective History of Present Illness Time Seen by Provider: 17:00 Date Seen: 04/26/24 Narrative: Patient is being admitted to Labor and Delivery for induction of labor in the setting of non-reassuring NST in clinic. She is a 33 year old at 40 weeks gestation. Her full history and physical was dictated by me on 04/03/2024 Please see this for details. is complicated by personal history of ankylosing spondylitis, family history of hypertrophic cardiomyopathy, depression, palpitations, history of nephrolithiasis. Jo-Ann presented to the clinic today with planned brief OB check and membrane sweeping. On Doppler assessment, heart rate was noted to be in the low 100s. We proceeded to NST, where there were several qualifying 15 x 15 accelerations but intermittently there would be a brief deceleration to the 90-100s following an acceleration. She was transferred to the Center for induction of labor. She notes intermittent contractions, not particularly painful. No vaginal bleeding or leaking of fluids. Endorses active movement. Review of systems otherwise negative. Specific Issues/Plans G 2 P 1001 # Ankylosing spondylitis. Will be starting with a new [employer]ch[employer] at [place] 10/2023. Maintained on Enbrel injections. May cause immune suppression in the infant after . Increased risk of prematurity and SGA . US for EFW in 3rd trimester. MFM referral USN at 13w6d: no gross abnormality noted. Daily low-dose aspirin starting at 12 weeks Level 2 US scheduled # Family history of hypertrophic cardiomyopathy. Her mother and brother have had cardiac transplant. She is positive for gene mutation TMP1. Cardiology referral: echo normal on 10/26/2023 of the patient. No cardiomyopathy. MFM referral placed: Recommend growth scan Q4 weeks after anatomy scan . Presuming no specific maternal or complications arise, timing/method of delivery per standard obstetrical indications: Delivery if the is uncomplicated between 39-39.6 weeks would be reasonable. Pt desires LIN[facility] ideally, discussed MFM recommendations as above. She would desire scheduling IOL at/beyond her due date, but is not agreeable to 39 weeks as of 04/03. Will consider/discuss further and make plan at upcoming visit. # History of kidney stones at age 7, status post removal. Avoid Tums. # Depression. Well-managed on sertraline 50mg. # Palpitations [x] f/u Zio patch x 48 hours - symptomatic SVT Flu: completed Covid: completed and boosted. Not up to date with booster. Recommended. Declined. TDAP: 02/16/24 Imagin01/10/24: EFW 25%tile, AC 43%tile, SDP 5.2 cm. 03/06/2024: Vertex, single deepest pocket of amniotic fluid: 4.7 cm, EFW: 43rd percentile. BPD: 79 percentile, HC: 60 percentile, abdominal circumference 66 percentile, femur length 6 percentile. Growth US on 04/03: EFW 2985g at 52%ile. BPD 71%ile, HC 72%ile, AC 56%ile and FL 26%ile. SDP 6.2cm, FHR 150bpm, vertex. OB - Problem Based A/P Additional Plan (1) Family history of hypertrophic cardiomyopathy: Problem details: mother, aunts/uncles maternal personal echo q5 years, 2025 Status: Acute (2) Palpitations: Status: Acute (3) Gene mutation: Problem details: Positive for gene mutation TMP1. Family h/o hypertrophic cardiomyopathy. Heritance risk 50% (autosomal dominant). Mother and brother have had cardiac transplant. Status: Acute (4) Anxiety: Status: Acute (5) Immunocompromised state due to drug therapy: Status: Chronic (6) Ankylosing spondylitis: Problem details: seeing Rheumatology. Taking Enbrel inj. weekly. 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 Schmitt through [facility]. Is establishing with kerri ALANIZ 10/2023 through [place]. Status: Acute Plan Jo-Ann is a 33-year-old admitted at 40 weeks 0 days gestation for induction of labor in the setting of non-reassuring NST. is complicated by ankylosing spondylitis, family history of hypertrophic cardiomyopathy, anxiety, and palpitations. NST on admission is category 1. Patient is raul intermittently, nonpainful. - Cervical exam is 2.5/50/-2/soft/midposition, [place] score of 6. Start induction of labor with Pitocin. - Anticipate next cervical exam in 4-6 hours, sooner as clinically indicated. IOL next steps will likely include AROM. - BT A+ - GBS negative - EFW by US on 04/03 was 2985g at 52%ile, AC 56%ile. OB Exam Physical Exam Vital signs: Temp Pulse BP Pulse Ox 97.9 F 68 123/80 97 04/26/24 15:52 04/26/24 15:52 04/26/24 15:52 04/26/24 15:53 Narrative: General: Alert and oriented, no acute distress Psych: Appropriate mood and affect Abdomen: Gravid. 04/03 US with EFW 2985g at 52%ile. BPD 71%ile, HC 72%ile, AC 56%ile and FL 26%ile. SDP 6.2cm, FHR 150bpm, vertex. heart rate: Category 1. Baseline 1 20 beats per minute, moderate variability, accelerations present. No appreciable decelerations at this time. Cervix: 2.5/50/-2, mid and soft. head is very well applied to cervix.
[2024-04-26] MEDS: LACTATED RINGERS 1000 ML 1,000 ML 125 ML IV (17:14)
[2024-04-26] MEDS: OXYTOCIN 30 unit/500 ML in NS 30 UNIT/500 ML BAG IVPB (17:14)
[2024-04-26] MEDS: SERTRALINE 100 MG TABLET PO (20:44)
[2024-04-26] MEDS: LACTATED RINGERS 1000 ML 1,000 ML IV (21:51)
[2024-04-26] MEDS: ROPIVACAINE 0.2% 100 ml 100 ML 11 MG EPIDURAL (22:13)
[2024-04-26] MEDS: LIDOCAINE 2% (PF) 5 ML VIAL EPIDURAL (22:28)
--- NOTE | 2024-04-26 22:55 | P.ANBPRC_ITS ---
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 She is and accompanied by her . She does not smoke. She has not used alcohol during . She does not use recreational drugs. She has no dietary restrictions. What is your current living situation?: I presently have a place to live Problems where you live: no known problems In the past 12 months, utilities in danger of being shut off: no In past 12 months, lack of transportation kept you from medical appts, meetings, work, or getting things needed for daily living: no In the past 12 mos, have been you worried that your food would run out before you had money to buy more?: never true In the past 12 mos, the food you bought just didn't last and you didn't have money to buy more?: never true Smoking Status: Never smoker How often does anyone, including family, friends and others, physically hurt you : never How often does anyone, including family, friends and others, insult or talk down to you: never How often does anyone, including family, friends and others, threaten you with harm: never How often does anyone, including family, friends and others, scream or curse at you: never Little interest or pleasure in doing things: not at all Feeling down, depressed, or hopeless: not at all Meds Home Medications and Allergies Home Medications ?Medication ?Instructions ?Recorded ?Confirmed ?Type etanercept 50 mg/mL (1 mL) 50 mg subcut QWEEK 02/22/22 04/26/24 History subcutaneous pen injector (Enbrel SureClick) cholecalciferol (vitamin D3) 50 50 mcg PO DAILY 10/31/22 04/26/24 History mcg (2,000 unit) tablet (D3 DOTS) L.acidoph, paracasei,B. lactis 10 1 cell PO DAILY PRN 07/28/23 04/26/24 History billion cell capsule (Digestive Advantage Advanced Probiotic) docosahexaenoic acid 200 mg 200 mg PO DAILY PRN 07/28/23 04/26/24 History capsule ( DHA) magnesium 250 mg tablet 250 mg PO QDAY PRN 07/28/23 04/26/24 History aspirin 81 mg chewable tablet 81 mg PO QDAY 10/27/23 04/26/24 History (Children's Aspirin) Allergies Allergy/AdvReac Type Severity Reaction Status Date / Time hydroxychloroquine Allergy Severe rash Verified 04/26/24 13:17 [From Plaquenil] Results Labs Labs: Laboratory Results - last 24 hr 04/26/24 16:34 WBC 9.29 RBC 4.00 Hgb 12.3 Hct 37.2 MCV 93 MCH 31 MCHC 33 RDW Coeff of Arnold 13.6 Plt Count 246 Neut % (Auto) 70.8 Lymph % (Auto) 21.5 [place] % (Auto) 6.1 Eos % (Auto) 0.8 Baso % (Auto) 0.2 Neut # (Auto) 6.57 Lymph # (Auto) 2.00 [place] # (Auto) 0.60 Eos # (Auto) 0.07 Baso # (Auto) 0.02 Abs Immat Gran (auto) 0.06 Imm/Tot Granulo (auto) 0.6 Blood Type A Positive Antibody Screen NEGATIVE Vital Signs Vital Signs: Last Vital Signs Temp 98.1 F 04/26/24 21:21 Pulse 66 04/26/24 22:51 Resp 18 04/26/24 21:21 BP 101/54 L 04/26/24 22:51 Pulse Ox 98 04/26/24 22:53 Weight: 86.046 kg Height: 157.48 cm Anesthesia Procedures Epidural Insertion Patient Location: OB Start Time: 22:05 Stop Time: 23:03 Start Date: 04/26/24 Stop Date: 04/26/24 Reason for Block: procedure for pain Patient Position: sitting Performed By: Dinorah Brito Preanesthetic Checklist: IV checked, risks and benefits discussed, monitors and equipment checked, pre-op evaluation, timeout performed and anesthesia consent Prep: chlorhexidine gluconate Monitoring: blood pressure monitoring, continuous pulse oximetry and heart rate Approach: midline Vertebral Space: lumbar (1-5) Needle Type: Tuohy needle Injection Technique: continuous catheter (continuous catheter) Needle gauge: 17 Needle Length (cm): 10 cm Needle Insertion Depth (cm): 7 Catheter Gauge: 19 Catheter Type: multi-orifice Catheter at skin depth (cm): 15 Test Dose Result: negative and lidocaine 1.5% with epinephrine 1 to 200,000
[2024-04-26] MEDS: PHENYLEPHRINE 100 MCG/ML SYRINGE IVP ×3 (22:58→23:07)
[2024-04-26] MEDS: LACTATED RINGERS 1000 ML 1,000 ML 525 ML IV (23:37)
--- NOTE | 2024-04-26 23:53 | PM.OBPNL ---
Subjective Time Seen by Provider: 23:53 Date Seen: 04/26/24 Narrative: Jo-Ann is a 33-year-old admitted at 40 weeks 0 days gestation for induction of labor in the setting of non-reassuring NST. is complicated by ankylosing spondylitis, family history of hypertrophic cardiomyopathy, anxiety, and palpitations. IOL has included pitocin thus far. Patient is s/p epidural placement. Cervix 4/50/-1 on exam, AROM performed with return of moderate volume clear fluid. Procedure was well tolerated, head well applied to cervix. Category 2 FHR tracing for brief period of tachycardia s/p phenylephrine for hypotension post epidural placement. FHR baseline has now settled back to 140bpm with moderate variable. s/p IVF bolus during epidural, will repeat as necessary. - Pitocin is currently at 6mu/min, hold to reassess contraction frequency s/p AROM. Then continue pitocin titration as needed, goal Q2-3m. - Anticipate next exam in 4 hours, sooner as clinically indicated - BT A+ - GBS negative Objective Vital Signs: Last Vital Signs Temp 97.9 F 04/26/24 22:58 Pulse 80 04/26/24 23:46 Resp 18 04/26/24 22:58 BP 101/64 04/26/24 23:46 Pulse Ox 98 04/26/24 23:48
[2024-04-27] VITALS (51 sets, daily range): BP systolic 89–144; BP diastolic 50–81; PULSE 48–119; RESP 15–18; TEMP 36.5–37.1; O2SAT 85–99
--- NOTE | 2024-04-27 03:54 | PM.OBPNL ---
Subjective Time Seen by Provider: 03:54 Date Seen: 04/27/24 Narrative: Jo-Ann is a 33-year-old admitted at 40 weeks 0 days gestation for induction of labor in the setting of non-reassuring NST. is complicated by ankylosing spondylitis, family history of hypertrophic cardiomyopathy, anxiety, and palpitations. IOL has included pitocin and AROM. She reported an urge to push, was felt to be complete by RN exam. Four pushing efforts commenced. I performed an exam to assess for position and descent, where descent could not be appreciated with pushing effort. SVE revealed presence of cervix anterior and patient right. Complete check is ant lip, 90%, 0 station. Suspected position is SANGEETHA with >45 degrees of rotation. FHR is category 2, where there are periods that are difficult to assess due to repositioning. FSE was placed without difficulty, FHR noted to be in the 150s with moderate variability shortly thereafter. Intermittent variable decelerations. Plan 500cc fluid bolus and maternal repositioning. Plan to proceed expectantly for 30-60 minutes to achieve complete cervical dilation. Plan of care reviewed with Jo-Ann, who is in agreement. Objective Vital Signs: Last Vital Signs Temp 98.1 F 04/27/24 02:57 Pulse 80 04/27/24 03:40 Resp 18 04/27/24 02:57 BP 125/76 04/27/24 03:40 Pulse Ox 98 04/27/24 03:42
[2024-04-27] MEDS: LACTATED RINGERS 1000 ML 1,000 ML 125 ML IV (03:57)
--- NOTE | 2024-04-27 06:02 | W.PM.VAGD1_ITS ---
Procedure Delivery date: 04/27/24 Procedure Done: Global Procedure Details: Normal spontaneous vaginal delivery 2nd degree laceration repair Events: Labor Induction and Other (Ankylosing spondylitis, family history of hypertrophic cardiomyopathy, anxiety, palpitations, GERD) Intrapartal Events: Labor Induction Delivery augmentation: rupture of membranes Delivery monitor: none Route of delivery: Laceration description: Perineal - 2nd Degree Delivery repair: Vicryl Estimated blood loss (mL): 125 Anesthesia type: Epidural Disposition: floor Complications: None Narrative: Jo-Ann is a 33-year-old admitted at 40 weeks 0 days gestation for induction of labor in the setting of non-reassuring NST. is complicated by a nkylosing spondylitis, family history of hypertrophic cardiomyopathy, anxiety, and palpitations. heart tones on admission were category 1 primarily, rare variable decelerations. Her labor was induced with IV pitocin and epidural was utilized for pain management. Status of bag of rg: AROM was performed intrapartum, return of clear fluids. heart tones during active labor were category 1 and 2. She was anterior lip at time of last check at 0313. She had urge to push, presumed to be complete and started pushing at 0444. I arrived at the bedside and confirmed complete cervical dilation, 0 station, SANGEETHA position. heart tones during second stage of labor were category 2 for variable decelerations with rapid return to a normal baseline, moderate variability. She made excellent descent with maternal pushing efforts. She had a at 0506. Baby delivered OA, restituted SANGEETHA and the anterior and posterior shoulders delivered without difficulty. Nuchal cord: absent. The cord was clamped and cut after delayed cord clamping. Active management of the third stage was performed, with IV pitocin and gentle traction on the umbilical cord. The placenta delivered spontaneous an d intact at 0520. Cord gases sent: no Cord blood sent for infant ABO: no Perineum and vagina were inspected, and the following lacerations were noted: 2nd degree laceration along prior perineal laceration. Repair was done in the usual fashion using 3-0 vicryl under existing epidural analgesia. Excellent hemostasis was noted. QBL 125cc. The following counts were correct: sponges, needles, instruments. Mother and infant in stable condition following the . details: - Liveborn male at 0506 - weight pending - APGARs were 8 and 9 at 1 and 5 minutes respectively Gender: Male presentation: vertex Placental Delivery Description: Spontaneous Cord Description: 3 Vessels total score - 1 minute: 8 total score - 5 minute: 9
[2024-04-27] MEDS: DOCUSATE SODIUM 100 MG CAPSULE PO (08:09)
[2024-04-27] MEDS: IBUPROFEN 600 MG TABLET PO ×2 (08:09→15:46)
[2024-04-27] MEDS: ACETAMINOPHEN 500 MG TABLET 1000 MG PO ×2 (12:26→19:42)
[2024-04-27] MEDS: SERTRALINE 100 MG TABLET PO (20:37)
[2024-04-28 00:17] VITALS: BP 112/71; PULSE 61; RESP 18; TEMP 36.5
[2024-04-28 05:10] VITALS: BP 107/64; PULSE 61; RESP 18; TEMP 37
[2024-04-28 06:39] LABS: Hemoglobin* 11.9 gm/dL (12.0-16.0)
--- NOTE | 2024-04-28 08:36 | PM.OBPNVD1 ---
OB - PN:Subj Subjective Time Seen by Provider: 08:36 Date Seen: 04/28/24 Patient comments OB post-: no complaints status: feeding status: breast and bottle feeding Narrative: Jo-Ann is day 1 from an uncomplicated vaginal delivery. She has no complaints today. She states her pain is well controlled with ibuprofen and Tylenol. She would like to stay until tomorrow so planning on discharging home on 04/29/2024. OB - PN: Obj Exam Physical Exam: Vital signs: Temp Pulse Resp BP Pulse Ox O2 Del Method 98.6 F 61 18 107/64 96 Room Air 04/28/24 05:10 04/28/24 05:10 04/28/24 05:10 04/28/24 05:10 04/27/24 15:42 04/28/24 05:10 Narrative: General: Pleasant, , well groomed woman in no acute distress. Vital signs: Included in her electronic medical record. Heart: Regular rate and rhythm without gallop or murmur. Chest: Clear to auscultation bilaterally without wheezes, rales or rhonchi. Abdomen: Soft nontender and nondistended with normal bowel sounds. Fundus firm at 1 cm below the umbilicus in the midline. Extremities: No pain or edema. OB - PN: Obj Data Labs Labs: Laboratory Results - last 24 hr 04/28/24 06:25 Hgb 11.9 L OB - PN: A/P Delivery Assessment and Plan (1) (normal spontaneous vaginal delivery): Status: Acute Assessment and Plan: 1. Planning discharge home tomorrow. 2. care. (2) care and examination: Status: Acute
[2024-04-28 08:44] VITALS: BP 107/68; PULSE 61; RESP 17; TEMP 36.3; O2SAT 96
[2024-04-28] MEDS: DOCUSATE SODIUM 100 MG CAPSULE PO (08:44)
[2024-04-28 16:30] VITALS: BP 107/70; PULSE 60; RESP 16; TEMP 36.4; O2SAT 96
[2024-04-28] MEDS: SERTRALINE 100 MG TABLET PO (20:54)
[2024-04-28] MEDS: ACETAMINOPHEN 500 MG TABLET 1000 MG PO (20:57)
[2024-04-29 00:39] VITALS: BP 98/59; PULSE 59; RESP 16; TEMP 36.9
[2024-04-29 04:54] LABS: Rapid Plasma Reagin (RPR) Non Reactive (Non Reactive)
[2024-04-29] MEDS: IBUPROFEN 600 MG TABLET PO (06:37)
[2024-04-29 07:24] VITALS: BP 106/72; PULSE 60; RESP 16; TEMP 36.7; O2SAT 95
--- NOTE | 2024-04-29 08:01 | PM.OBDSVD1 ---
DS: Providers Provider Time Seen by Provider: 08:01 Date Seen: 04/29/24 Date of admission: 04/26/24 15:43 Primary care physician: Judy Vidal MD Admitting Clinician: Juana Miller MD Attending Physician on discharge: Gretta Dickey MD Date of Discharge: 04/29/24 DS: Diagnosis Discharge Diagnosis (1) (normal spontaneous vaginal delivery): Status: Acute (2) care and examination: Status: Acute Exam Narrative: Exam Narrative: General: Pleasant, , well groomed woman in no acute distress. Vital signs: Included in her electronic medical record. Heart: Regular rate and rhythm without gallop, rub or murmur. Chest: Clear to auscultation bilaterally. Abdomen: Soft, nontender, nondistended with normal bowel sounds throughout. Fundus firm at 2 cm below the umbilicus in the midline Extremities: No pain or edema Const: Vital Signs, click to edit/add: Vital Signs - 24 hr 04/28/24 08:44 04/28/24 16:30 04/29/24 00:39 Temperature 97.3 F L 97.5 F L 98.5 F Pulse Rate [Pulse Oximeter] 61 60 59 L Respiratory Rate 17 16 16 Blood Pressure [Le ft Arm] 107/68 107/70 98/59 L Pulse Oximetry 96 96 Oxygen Delivery Me thod Room Air Room Air Room Air 04/29/24 07:24 Temperature 98.1 F Pulse Rate [Pulse Oximeter] 60 Respiratory Rate 16 Blood Pressure [Le ft Arm] 106/72 Pulse Oximetry 95 Oxygen Delivery Me thod Room Air OB - DS: Summary Hospital Course Hospital Course: Jo-Ann is a 33 year old G 2 P 2 at 40 weeks gestation that was admitted to the Center on 04/26/24 for induction of labor due to nonreassuring testing. She had an uncomplicated vaginal delivery. She delivered a viable male infant. She is breast feeding. the patient has done well. She would like to be discharged home today. She is tolerating a regular diet, ambulating without difficulty and managing pain with Tylenol and ibuprofen. Peripartum Data delivery method: Vaginal Laceration description: Perineal - 2nd Degree Gender: Male Status at Discharge Functional status at discharge: independent ambulation Overall status at discharge: patient is progressing back to baseline Time Spent with Patient Time attestation: Total time spent providing and/or coordinating discharge services: Time spent: Less than 30 minutes Discharge Plan Discharge Disposition: Home, Self-Care Date of Admission: 04/26/24 15:43 Attending Provider on Discharge: Gretta Dickey Primary Care Provider: Judy Vidal Condition: Stable Anticipated Discharge Date/Time: 04/29/24 11:00 Discharge Medications: New docusate sodium 100 mg Capsule 100 mg PO BID PRNQty: 100 0RF ibuprofen 600 mg Tablet 600 mg PO Q6H PRNQty: 30 0RF Continued magnesium 250 mg tablet 250 mg PO QDAY PRN Enbrel SureClick 50 mg/mL (1 mL) pen injector 50 mg subcut QWEEK DHA 200 mg capsule 200 mg PO DAILY PRN Digestive Advantage Advanced 10 billion cell capsule 1 cell PO DAILY PRN sumatriptan succinate [Imitrex] 25 mg tablet 25 mg PO ONCE PRN (Reason: migraine headache) Qty: 10 12RF Rx Instructions: may repeat once after at least 2 hours hydroxyzine HCl 10 mg tablet 10 mg PO TID PRN (Reason: anxiety) Qty: 90 3RF cholecalciferol (vitamin D3) [D3 DOTS] 50 mcg (2,000 unit) tablet 50 mcg PO DAILY sertraline 100 mg tablet 100 mg PO QDAY Qty: 90 3RF Discontinued aspirin [Children's Aspirin] 81 mg tablet,chewable 81 mg PO QDAY Discharge Orders: Discharge Order (Routine); Ordered 04/29/24 Ordered By: Gretta Dickey Patient Education: Vaginal Delivery (DC) Additional Instructions: Discharge instructions were reviewed with the patient including signs and symptoms of infection and home going medications. Nothing vaginally for 6 weeks: no intercourse or tampons. No lifting or exercise limitations. Off Work or School for a minimum of 6 weeks. Symptoms to report to doctor: -Bleeding that saturates more than one pad per hour ?-Passing clots larger than the size of a golf ball ?-Pain not relieved by prescribed medication ?-Fever above 100.4 degrees Fahrenheit ?-A foul vaginal odor ?-Difficulty in emotions, mood and functions ?-Thoughts of hurting yourself and/or ?-Painful, reddened area in your breast ?-Any drainage, redness or tenderness in your IV/epidural site ?-Severe headache that doesn't improve after taking medications ?-Changes in vision, including temporary loss of vision, blurred vision, and/or light sensitivity ?-Upper abdominal pain (usually under ribs on the right side) ?-Decrease in urination or painful, frequent urinating ?-Chest pain ?-Shortness of breath ?-Tenderness or pain with redness and/swelling in the calf(s) of your leg Follow-up appointments: 1. Optional 2 week visit: Review contraceptive options, screen for anxiety and depression, answer any questions. 2. 6 week visit for annual exam. consultation services are available to all mothers and babies for the first year after delivery.? To make an appointment, please call [phone]. Activity Level: Other Discharge Diet: Regular Follow Up Appointments: Judy Vidal MD [Primary Care Provider] - [facility] [Provider Group] Forms: MyHealth Info Instructions
== END 2024-04-29 10:55 | disposition home or self-care (01) | DRG 806 ==
PROVIDERS: Admitting Provider Obstetrics & Gynecology; PCP Family Medicine; Visit Provider Obstetrics & Gynecology
DX: O70.1 Second degree perineal laceration during delivery (principal); D84.821 Immunodeficiency due to drugs; Z37.0 Single live birth; O77.8 Labor and delivery complicated by other evidence of fetal stress; O99.344 Other mental disorders complicating childbirth; F41.9 Anxiety disorder, unspecified; F32.A Depression, unspecified; Z3A.40 40 weeks gestation of pregnancy; Z82.49 Family history of ischemic heart disease and other diseases of the circulatory system; M45.9 Ankylosing spondylitis of unspecified sites in spine; Z79.899 Other long term (current) drug therapy; G43.009 Migraine without aura, not intractable, without status migrainosus; Z15.89 Genetic susceptibility to other disease; R00.2 Palpitations
CPT/HCPCS: 01967; 36415; 85018; 85025; 86592; 86850; 86900; 86901; A9270; J2371; J2795; J7120

== ENCOUNTER 2024-05-01 14:35 | Outpatient (CLI) | payer OTHER, SELFPAY ==
--- NOTE | 2024-05-01 15:36 | P.LACCB_ITS ---
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, 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 Delivery Information Delivery type: Vaginal Weeks Gestation: 40w +1d Gestational Age: AGA Weight: 3.295 kg Discharge Weight: 3.112 kg Baby's Information Medications: none Baby's Age at Visit: 4d Baby's Provider or Clinic: [facility] Jaundice: No Reason for Consult Reason for Consult: Slight nipple pain, history of clogged ducts with first baby Past Experience Past Experience: Yes Current Frequency of Day Feedings: every 2- 3 hrs, some cluster feeds Frequency of Night Feedings: every 2-3 hours Both Breasts: Yes (soemtimes) Suck: strong Latch: wide, deep Length of Time: 10-20 min x1 side, maybe 5-10 on 2nd Goals: 1 year or longer Pumping Pumping: No Supplementing EMB Supplement: No Formula Supplement: No Baby Elimination Number of Wet Diapers a Day: more than 4 Number of BM a Day: 4 or more, have turned yellow and seedy Breast/Nipple Condition Breast Information: Breasts round and symmetrical, no redness; nipples supple, small (1-2mm) crack on right side Engorgement: No Maternal Nipple Condition - Left: Common Nipple Maternal Nipple Condition - Right: Common Nipple and Cracking/ Fissures Sore Nipples: Yes Interventions for Sore Nipples: Lansinoh and Soothies Onsite Pre-Feed weight: 3.228 kg (dressed) Post-Feed weight: 3.276 kg Milk Transferred (mL): 48 Pre-Nursing Left Nipple: Within Normal Limits Pre-Nursing Right Nipple: Within Normal Limits and Crusting/Scabs (as above) Post-Nursing Left Nipple: Within Normal Limits Assessments/Interventions Assessments/Interventions: Reviewed basics of positioning, freq of feeding, offer both breasts. Continue with asymmetric latch technique demonstrated here in the office Baby nursed for 15 minutes, transferred 48 ml of milk, uninterested in nursing the 2nd side (offered) Discussed minimal use of pump and/or Ha[place]aa right now so as not to move in to oversupply which would increase risk of plugged ducts. Discussed breast gymnastics if having a hard time getting breast to drain with feeding Mom has sunflower lecithin at home; discussed use of this if begins to feel a plugged duct coming on. Also discussed different , different baby with different feeding behavior may not lead to plugged ducts this time. Handouts for Managing Plugged Ducts from [employer] given as well as Lymphatic Drainage from [email or web address] given and reviewed Mom to call with questions/concerns Time spent reviewing chart and face to face with mom and baby: 60 minutes Meds Home Medications and Allergies Home Medications ?Medication ?Instructions ?Recorded ?Confirmed ?Type etanercept 50 mg/mL (1 mL) 50 mg subcut QWEEK 02/22/22 04/26/24 History subcutaneous pen injector (Enbrel SureClick) cholecalciferol (vitamin D3) 50 50 mcg PO DAILY 10/31/22 04/26/24 History mcg (2,000 unit) tablet (D3 DOTS) L.acidoph, paracasei,B. lactis 10 1 cell PO DAILY PRN 07/28/23 04/26/24 History billion cell capsule (Digestive Advantage Advanced Probiotic) docosahexaenoic acid 200 mg 200 mg PO DAILY PRN 07/28/23 04/26/24 History capsule ( DHA) magnesium 250 mg tablet 250 mg PO QDAY PRN 07/28/23 04/26/24 History Allergies Allergy/AdvReac Type Severity Reaction Status Date / Time hydroxychloroquine Allergy Severe rash Verified 04/26/24 13:17 [From Plaquenil]
== END 2024-05-01 14:36 | disposition home or self-care (01) ==
LOC: OB LAC 14:36
PROVIDERS: PCP Family Medicine; Visit Provider Obstetrics & Gynecology
DX: Z39.1 Encounter for care and examination of lactating mother (principal)
CPT/HCPCS: G0463

== ENCOUNTER 2024-05-14 15:16 | Outpatient (CLI) | payer OTHER, SELFPAY | END 2024-05-14 15:17 | disposition home or self-care (01) | LOC: NFLDREF 15:19 | PROVIDERS: PCP Family Medicine; Visit Provider Registered Nurse | DX: R00.1 Bradycardia, unspecified (principal); Z39.2 Encounter for routine postpartum follow-up | CPT/HCPCS: 84443 ==

== ENCOUNTER 2024-06-10 09:35 | Outpatient (CLI) | payer OTHER, SELFPAY ==
--- NOTE | 2024-06-10 10:54 | W.PM.LAC.MF ---
Follow-Up Note: Mom Date of visit Date of visit: 06/10/24 Reason for consultation: Assistance Needed and Other (mom with oversupply, infant with feeding concerns) Visit Code: Visit Patient's Information Allergies hydroxychloroquine [From Plaquenil] Allergy (Severe, Verified 06/07/24 12:48) rash Delivery Information Weight: 3.295 kg Last Weight: 3.34 kg (on 05/08/24) Baby's Information Baby's name: Socrates Baby's Age at Visit: 6 weeks 2 days Baby's Provider or Clinic: [facility] Medications: just started pepcid for reflux symptoms Current Frequency of Day Feedings: every 2-3 hours Frequency of Night Feedings: 4-6 hours at night Both Breasts: No Suck: strong Latch: not so deep, mom with large supply and strong letdown Length of Time: 10-15 min most feeds Pumping Pumping: No Supplementing EBM Supplement: No Formula Supplement: No Baby Elimination Number of Wet Diapers a Day: each feeding Number of BM a Day: 1/day or every other day Breast/Nipple Assessment Breast Shape: Round Engorgement: No Maternal Nipple Condition - Left: Common Nipple Maternal Nipple Condition - Right: Common Nipple Sore Nipples: No Onsite Observation Pre-feed weight: 4.122 kg Post-Feed weight: 4.194 kg Milk Transferred (mL): 69 (after nursing 12 minutes on left breast; offered again and baby declined) Pre-Nursing Left Nipple: Within Normal Limits Post-Nursing Left Nipple: Within Normal Limits Assessments/Interventions Assessments/Interventions: Lynn latched well to mom's left breast; about 40 seconds into nursing, gulping heard at the breast, milk flowing out of baby's mouth Showed mom how to do some back compression to help reduce strong flow to lynn as letdown occurs. Baby does tuck his lower lip up and in which may add to air intake and subsequent upset tummy after feedings; worked with mom to draw bottom lip out with moderate success. Looks as though lynn holds his lip in to help manage milk flow. Lynn weighed after 12 min of nursing, transferred 69 ml of milk. Started acting fussy again so mom put him back to breast, milk flowing and lynn takes himself off breast. Discussed continuing back compression to ease flow of milk to baby during let down phase Continue offering one breast/feed given milk transfer seen here and unwilling to resume nursing when offered. Discussed pumping routine with mom so she can build a bit of a supply before she returns to work in 6 weeks; recommend she pump about 2 oz/day - 1 oz from breast fed on and 1 oz from breast not fed on to balance out fore/hind milk given large supply Discussed continuing to offer bottles several times a week to be sure he is ready for feeding at daycare Mom's questions answered Education provided: Supply/demand nature of milk supply Handouts Provided: Managing high milk production Follow-Up Suggested follow up: Appointment as needed (based on Dr. Thornton's recommendation on green stools and starting Pedcid for reflux) Recommend baby be seen by provider for:: reflux symptoms and green poops that started recently Time Spent Time spent with patient (min): 70 (time spent reviewing EMR and face to face time with mom and baby) Meds Home Medications and Allergies Home Medications ?Medication ?Instructions ?Recorded ?Confirmed ?Type etanercept 50 mg/mL (1 mL) 50 mg subcut QWEEK 02/22/22 06/07/24 History subcutaneous pen injector (Enbrel SureClick) cholecalciferol (vitamin D3) 50 50 mcg PO DAILY 10/31/22 06/07/24 History mcg (2,000 unit) tablet (D3 DOTS) L.acidoph, paracasei,B. lactis 10 1 cell PO DAILY PRN 07/28/23 06/07/24 History billion cell capsule (Digestive Advantage Advanced Probiotic) docosahexaenoic acid 200 mg 200 mg PO DAILY PRN 07/28/23 06/07/24 History capsule ( DHA) magnesium 250 mg tablet 250 mg PO QDAY PRN 07/28/23 06/07/24 History Allergies Allergy/AdvReac Type Severity Reaction Status Date / Time hydroxychloroquine Allergy Severe rash Verified 06/07/24 12:48 [From Plaquenil]
== END 2024-06-10 09:36 | disposition home or self-care (01) ==
PROVIDERS: PCP Family Medicine; Visit Provider Obstetrics & Gynecology
DX: Z39.1 Encounter for care and examination of lactating mother (principal)
CPT/HCPCS: G0463

== ENCOUNTER 2024-09-05 08:40 | Outpatient (CLI) | payer OTHER, SELFPAY | END 2024-09-05 08:41 | disposition home or self-care (01) | LOC: NFLDREF 09-16 14:35 | PROVIDERS: PCP Physician Assistant Medical; Referring Provider Family Medicine; Visit Provider Physician Assistant Medical | DX: R61 Generalized hyperhidrosis (principal); Z13.220 Encounter for screening for lipoid disorders | CPT/HCPCS: 80053; 80061; 83525; 84443 ==

== ENCOUNTER 2024-12-18 11:30 | Outpatient (RCR) | payer OTHER, SELFPAY ==
--- NOTE | 2024-12-19 07:38 | PT.OPDN ---
[facility] Daily Note [facility] Daily Note Start: 10/04/24 12:59 Freq: Status: Active Protocol: Document 12/18/24 10:14 ARR (Rec: 12/18/24 12:35 ARR [email or web address]) E-signed By Bea Barton DPT PT OP Daily Progress Note Visit Information Note Type Daily Note,Recert/Progress Note Visit Number 12 Insurance Information Insurance Name [facility] Insurance Information/Comments POC 1 x 12 / x 4 visits every 3-4 wks Eval 06/07 / re cert on 12/18 / / new POC 12/19 - Medical Diagnosis Z39.2 encounter for routine follow-up N45.9 ankylosing spondylitis of unspecified sites in spine PFPT and back PT Treating Diagnosis R27.8 lack of coordination M54.6 thoracic spine pain R51.9 headaches Referring MD Juana Miller MD ([facility]) Subjective Subjective -Doing okay. Working out consistently. Working on incorporating into workouts. -Slight pain with intercourse. No issues since last visit. Knows mobility will help. -Working on breathing in various locations. -Not tons of CLARKE symptoms. Medial knee pain on L. Got irritated with trying to jog on TM. Had been doing elliptical instead. Does strength training at the gym. When doing stepping exercises seemed to bother. -More mindful of core connection. Precautions Treatment Precautions/Contraindications PP 18 wks Home Exercise Home Exercise Comments OTHER: -constipation 06/07 -How to BM 06/07 -Goals Access Code: [email or web address] Access Code: [email or web address] URL: [email or web address] Date: 06/07/2024 Prepared by: Bea Barton Exercises - Sidelying Thoracic Rotation - 1 x daily - 4-5 x weekly - 6-8 reps - Sidelying 360 Breathing - 1 x daily - 4-5 x weekly - 6-8 reps - Corner Pec Major Stretch - 1 x daily - 4-5 x weekly - 2-3 reps - 15-20 sec hold - Seated Scapular Retraction - 4-5 x daily - 7 x weekly - 4 -5 reps - 2-3 hold Objective Other/Pertinent Objective 11/27/24: Reduced overall PFM TTP, increased tone throughout layers 1-3 but most at layer 3. PFC 1/5 with inc'd PA lift vs squeeze. EXTERNAL OBJECTIVE 06/07/24: -Movement screen: MS flexion inc'd HS mobility, reduced TS. MS extension reduced TS. MS rotation rotation 25% ea side -SLS: moderate pelvic drop on L, mild on R -Posture: level IC, inc'd APT, inc'd LS lordosis, reduced TS kyhposis, inc'd fwd head and rounded shoulders. -Hip PROM: 90 ER / 39 IR -Strength: 2+ Other Tests: -Coordination: gripping of upper abs with TA activation -Breathing: dec?d posterior and lateral ribcage mvmt with inhalation -Rib angle: 90 -DR: above BB 1.5 fingers and below. Depth of <1 knuckle Special tests: -SLR: neg -Flexibility: pos HF on L INTERNAL EXAMINATION INTRAVAGINAL 06/27/24: -Sensation: intact to touch -Observation: -Perineum: normal -Cough: nil -Lifting contraction: nil -Bulge: nil -Prolapse: nt Tenderness/pain to palpation/ tone: -Layer 1: ischiocavernosus / bulbospongiousus / superficial transverse perineal on L -Layer 2: deep transverse perineal / sphincter urethrovaginalis on L -Layer 3: puborectalis / pubococcygeus / inc'd tone and TTP bilat Strength ( R / C / L): -Power (MMT): 0 -Endurance: -Reps: -Fast twitch: Thigh muscle engagement during attempts at PFC. Cues for isolated activation improved muscle firing. Other: -Breathing examination: dec?d posterior and lateral ribcage mvmt with inhalation -Coordination: poor TA, gripping with upper abs Patient Instructed in Risks/Benefits Yes Neuromuscular Re-Ed Neuromuscular Reeducation Minutes ( 53 minutes) Neuromuscular Reeducation Comments NMR: Indicated to facilitate improved muscle firing and postural awareness through the use of tactile cues. Education: -Focus on core connection with exercises, slow down with exercises. -LE alignment with elliptical, TM , step ups. Discussed importance of control of speed -Leg press muscle firing with glut Supine: -GS 10 x 5 holds - Prone heel press 10 x 5 holds. 6 x 5 holds - cues for less effort improved quality -Bridge x 10 reps - wt in heels -Bridge w/ball squeeze 2 x 10 reps - cues for wt in heels -Prone glut squeeze 10 x 5 holds. -Education with continued work on glut connection Goals for the week: -Focus on TA and sin-scap engagement during gym exercises -Focus on glut engagement integrating into the day with GS or bridges Treatment Minutes Timed Code Treatment Minutes 53 Total Treatment Time 53 Billing Units Neuromuscular Reeducation Units 4 Assessment/Impression Assessment/Impression No PF sx's since last session. Continued progression to Glut strengthening/coordination. Does demonstrate a fair degree of glut inhibition. Difficulty coordinating a glut squeeze isometrically. Did improve with practice. HEP was progressed to incorporate more glut coordination. Cues throughout for form, breathing , and motor firing patterns . Plan of Care Physical Therapy Goals STG (within 6 weeks) 1) Pt will demonstrate proper coordination of motor recruitment patterns for PF then TA activation during isometric activation while maintaining diaphragmatic breathing pattern - 2) Pt will report improved bowel movements at least type 3-4 without straining to facilitate healing of PF tissues \ 3) Pt will report at least 40% improvement in thoracic spine , neck pain, and headaches for improved ability to care for children LTG (within 12 weeks) 1) Pt will demonstrate proper coordination of motor recruitment patterns for PF then TA activation during dynamic UE/LE movements in all postures while maintaining diaphragmatic breathing pattern - PROGRESSING TOWARD 2) Pt will demonstrate improved PFM contraction of at least 3 on Laycock scale - UNMET 3) Pt will return to weight lifting without onset of pelvic floor symptoms for ability to return to PLOF - PROGRESSING TOWARD 4) Pt will report at least 80% improvement in thoracic spine , neck pain, and headaches for improved ability to care for children - PROGRESSING TOWARD Daily Plan of Care Comments -Glut and core progression. Discuss exercises if needed to incorporate into day Recertification Information Reasons to Continue Skilled Therapy Pt had been seen for lack of coordination, headaches, thoracic spine pain s/p vaginal delivery for 12 visits from 06/07/24 to 12/18/24 during this episode of physical therapy. Focus of therapy on hip/spine ROM, deep breathing, PF lengthening, with progression to proximal coordination of PFTA and gluts . Treatment also included education optimizing bowel and bladder health for symptom reduction/mgmt. Interventions including ther exercise, manual therapy, self-care, neuromuscular re-education. Pt's has not yet met all short and skilled nursing goals at this time. Maximal therapeutic benefit has not yet been reached. Thus. pt would benefit from ongoing therapy at a frequency of 1 visit every 3-4 weeks for an additional 5 visits. Focus of ongoing therapy to targeting progression of proximal coordination / strengthening of TA and gluts
== END 2025-04-17 23:59 | disposition home or self-care (01) ==
PROVIDERS: PCP Family Medicine; Visit Provider Obstetrics & Gynecology
DX: M45.9 Ankylosing spondylitis of unspecified sites in spine (principal); R27.8 Other lack of coordination; Z39.2 Encounter for routine postpartum follow-up; M54.6 Pain in thoracic spine; R51.9 Headache, unspecified; M54.9 Dorsalgia, unspecified; Z51.89 Encounter for other specified aftercare
CPT/HCPCS: 97110; 97112; 97140; 97161; 97535

== ENCOUNTER 2025-02-19 09:53 | Outpatient (CLI) | payer OTHER, SELFPAY | END 2025-02-19 09:54 | disposition home or self-care (01) | LOC: NFLDREF 02-23 01:12 | PROVIDERS: PCP Physician Assistant Medical; Referring Provider Physician Assistant Medical; Visit Provider Physician Assistant | DX: R19.7 Diarrhea, unspecified (principal) | CPT/HCPCS: 87045; 87046; 87427 ==